=== PATIENT | female | born 1995 | race African-American/Black ===

== ENCOUNTER 2016-09-25 18:27 | Outpatient (CLI) | payer SELFPAY ==
[2016-09-25] MEDS ORDERED: LANSOPRAZOLE 30 MG TAB.RAP.DR PO ONE ×2 (19:06→19:16)
[2016-09-25] MEDS ORDERED: LANSOPRAZOLE 30 MG TAB.RAP.DR ONE (19:08)
[2016-09-25 19:22] LABS: APPEARANCE,URINE CLEAR; BILIRUBIN,URINE NEGATIVE (NEGATIVE); GLUCOSE, URINE NEGATIVE (NEGATIVE); KETONES,URINE NEGATIVE (NEGATIVE); LEUKOCYTE ESTERASE,URINE SMALL (NEGATIVE); NITRITE,URINE NEGATIVE (NEGATIVE); PROTEIN,URINE NEGATIVE (NEGATIVE); URINE SPECIFIC GRAVITY 1.009; UROBILINOGEN,URINE NEGATIVE mg/dL (<2.0)
[2016-09-25] MEDS ORDERED: ONDANSETRON 4 MG TAB.RAPDIS PO ONE (19:47)
[2016-09-25] MEDS ORDERED: ONDANSETRON 4 MG TAB.RAPDIS ONE (19:54)
[2016-09-25 19:57] LABS: URINE BARBITURATES SCREEN NEGATIVE; URINE METHADONE SCREEN NEGATIVE; URINE PHENCYCLIDINE SCREEN NEGATIVE
--- NOTE | 2016-09-25 20:00 | L&D Flow Sheet ---
LD Flowsheet Datetime Report Generated by CPN: 09/25/2016 20:00 Datetime: 09/25/2016 19:50 Vital Signs NBP Sys/Genny/Mean (mmHg): 89 (QS system process) : 56 (QS system process) : 67 (QS system process) Pulse: 96 (QS system process) LaborFlag: Antepartum (QS system process) Datetime: 09/25/2016 19:20 Vital Signs NBP Sys/Genny/Mean (mmHg): 101 (QS system process) : 64 (QS system process) : 78 (QS system process) Pulse: 91 (QS system process) LaborFlag: Antepartum (QS system process) Datetime: 09/25/2016 19:12 Medications Antiemetics/Antacids: Prevacid 30mg ODT (Precious Chalman, RN) Datetime: 09/25/2016 19:09 Communication Communication Comments: handoff report given to A Chalman RN (Luzmaria Baidy, RN) Datetime: 09/25/2016 19:02 Communication Communication Comments: Dr Neilsen notified of pt complaint of sour stomach and ctx q20-30 min and lower abd pressure. Orders received for prevacid 30mg odt and d/c home if upset stomach resolves. (Luzmaria Baidy, RN) Datetime: 09/25/2016 18:50 Vital Signs NBP Sys/Genny/Mean (mmHg): 109 (QS system process) : 72 (QS system process) : 85 (QS system process) Pulse: 102 (QS system process) LaborFlag: Antepartum (QS system process) Datetime: 09/25/2016 18:48 Uterine Activity Frequency (min): 20-30 (Luzmaria Hill, RN) Pain Pain Scale: 0 (Luzmaria Hill, RN) Pain Presence: None/Denies (Luzmaria Hill, SAEED) Pain Type: N/A (Luzmaria Hill, SAEED) Vaginal Exam Membrane Status: Intact (Luzmaria Baidy, RN) Vaginal Bleeding: None (Luzmaria Baidy, RN) Maternal Assessment Level of Consciousness: Fully Conscious (Luzmaria Baidy, RN) DTR's/Clonus: DTRs 2+; No Clonus (Luzmaria Baidy, RN) Headache: Denies (Luzmaria Baidy, RN) Breath Sounds, Left: Clear and Equal (Luzmaria Baidy, RN) Breath Sounds, Right: Clear and Equal (Luzmaria Baidy, RN) Nausea/Vomiting: Denies (Luzmaria Baidy, RN) RUQ Epigastric Pain: Denies (Luzmaria Baidy, RN) Patient Care Patient Position/Activity: Semi-Fowlers (Luzmaria Hill RN) Teaching Instructional Method: Verbal; Patient Instructed; Verbalized Understanding (Luzmaria Hill RN) Plan of Care: Plan of Care Discussed (Luzmaria Hill RN) Unit Routine: [employer] to Room; Call Treviño; Bed; Monitoring (Luzmaria Hill RN) LaborFlag: Antepartum (QS system process)
--- NOTE | 2016-09-25 20:43 | Non Stress Test Report ---
Non Stress Test Datetime Report Generated by CPN: 09/25/2016 20:43 DEMOGRAPHIC EGA NST: 36.4 INDICATION Indication for Study: Ordered by Provider MONITORING Monitor Explained: Monitor Explained; Test Explained; Patient Verbalized Understanding Time on Monitor: 09/25/2016 18:48 NST INTERVENTIONS NST Interventions: None Physician Notified NST: Dr Neilsen BABY A: [id number] BABY A Movement : Present Contraction Frequency : irregular FHR Baseline : 145 Accelerations : 15X15 Decelerations : None Variability : Moderate 6-25bpm NST Review: Meets Criteria for Reactive NST NST Review and Verified By : Max kern. RN NST Results: Reactive NST REPORT Report Trigger: Send Report
--- NOTE | 2016-09-26 04:47 | L&D Discharge Summary ---
OB Discharge Summary Datetime Report Generated by CPN: 09/26/2016 04:45 DISCHARGE DIAGNOSIS Diagnosis/Symptoms: False Labor Gestation: 36.4 Number of Babies in Womb: 1 Parity: 1 DIET/ACTIVITY/RESTRICTIONS Diet: Regular Activity: Normal Activity TEACHING/INSTRUCTIONS/REFERRALS Instructions Given To: Patient Instructions Understood: Patient Verbalized Understanding Referrals: None Educational Materials- Other: Kick Counts and Round ligament ludy DISCHARGE INFORMATION Discharged AMA: No Discharge Date/Time: 09/25/2016 20:00 Discharged To: Home Discharge Provider Name: Jessy Accompanied By: self Discharge Method: Ambulatory Condition: Stable FOLLOW UP INFORMATION Follow Up With: [facility] Follow Up On: As Scheduled Comments: pt educated on kick counts and pre term labor precautions. pt instructed to return hosptial for SROM, decreased fm, bleeding like a period or strong regular contractions
--- NOTE | 2016-09-26 04:47 | L&D Admission Assessment ---
LD ADM ASMT Datetime Report Generated by CPN: 09/26/2016 04:45 PATIENT ASSESSMENT Assessment Type: Triage (09/25/2016 18:48:Luzmaria Baidy, RN) WEIGHT Weight (lb): 185 (09/25/2016 18:42:QS system process) Weight (kg): 84.1 (09/25/2016 18:42:QS system process) BMI: 36.1 (09/25/2016 18:42:QS system process) PAIN Pain Scale: 0 (09/25/2016 18:48:Luzmaria Hill RN) Pain Presence: None/Denies (09/25/2016 18:48:Luzmaria Hill RN) Pain Type: N/A (09/25/2016 18:48:Luzmaria Hill RN) CONTRACTIONS Frequency (min): x1 (09/25/2016 19:55:Precious Powell RN) Frequency (min): none (09/25/2016 19:45:Precious Powell RN) Frequency (min): irregular (09/25/2016 19:30:Precious Powell RN) Frequency (min): irregular (09/25/2016 19:15:Precious Powell RN) Frequency (min): x1 (09/25/2016 19:00:Precious Powell RN) Frequency (min): 20-30 (09/25/2016 18:48:Luzmaria Hill RN) Duration (sec): 90 (09/25/2016 19:55:Precious Powell RN) Duration (sec): 120 (09/25/2016 19:30:Precious Darioman, RN) Duration (sec): 80-90 (09/25/2016 19:15:Precious Sherry, RN) Duration (sec): 90 (09/25/2016 19:00:Precious Sherry, RN) Quality: Mild (09/25/2016 19:55:Precious Sherry, RN) Quality: Mild (09/25/2016 19:30:Precious Sherry, RN) Quality: Mild (09/25/2016 19:15:Precious Sherry, RN) Quality: Mild (09/25/2016 19:00:Precious Sherry, RN) Pattern: Normal: <= 5 Contractions in 10 Minutes (09/25/2016 19:55:Precious Darioman, RN) Pattern: Normal: <= 5 Contractions in 10 Minutes (09/25/2016 19:30:Precious Sherry, RN) Pattern: Normal: <= 5 Contractions in 10 Minutes (09/25/2016 19:15:Precious Sherry, RN) Pattern: Normal: <= 5 Contractions in 10 Minutes (09/25/2016 19:00:Precious Sherry, RN) Resting Tone [place]: Relaxed (09/25/2016 19:55:Precious Sherry, RN) Resting Tone [place]: Relaxed (09/25/2016 19:30:Precious Sherry, RN) Resting Tone [place]: Relaxed (09/25/2016 19:15:Precious Sherry, RN) Resting Tone [place]: Relaxed (09/25/2016 19:00:Precious Darioman, RN) VAGINAL EXAM Membranes Status: Intact (09/25/2016 18:48:Lzumaria Hill, RN) NEURO Level of Consciousness: Fully Conscious (09/25/2016 18:48:Luzmaria Hill RN) DTR's/Clonus: DTRs 2+; No Clonus (09/25/2016 18:48:Luzmaria Hill RN) Headache: Denies (09/25/2016 18:48:Luzmaria Hill RN) Dizziness: Yes (Annotations: slightly dizzy per pt) (09/25/2016 18:48:Luzmaria Hill RN) Blurred Vision: No (09/25/2016 18:48:Luzmaria Hill RN) Extremity Numbness/Tingling : None (09/25/2016 18:48:Luzmaria Hill RN) Extremity Movement: Full Range of Motion (09/25/2016 18:48:Luzmaria Hill RN) CARDIOVASCULAR Nailbeds: [place] (09/25/2016 18:48:Luzmaria Hill RN) Capillary Refill: Less than 3 Seconds (09/25/2016 18:48:Luzmaria Hill RN) Lower Extremities Edema: None (09/25/2016 18:48:Luzmaria Hill RN) Lower Extremities Edema Degree: None (09/25/2016 18:48:Luzmaria Hill RN) Upper Extremities Edema: None (09/25/2016 18:48:Luzmaria Hill RN) Upper Extremities Edema Degree: None (09/25/2016 18:48:Luzmaria Hill RN) Facial Edema: None (09/25/2016 18:48:Luzmaria Hill RN) Fer's Sign Left Leg: Negative (09/25/2016 18:48:Luzmaria Hill RN) Fer's Sign Right Leg: Negative (09/25/2016 18:48:Luzmaria Hill RN) RESPIRATORY Respiratory Effort: Unlabored; Regular Rhythm; Equal Expansion (09/25/2016 18:48:Luzmaria Hill, SAEED) Breath Sounds, Left: Clear and Equal (09/25/2016 18:48:Luzmaria Hill, RN) Breath Sounds, Right: Clear and Equal (09/25/2016 18:48:Luzmaria Hill, SAEED) Cough Productivity: None (09/25/2016 18:48:Luzmaria Hill RN) GASTROINTESTINAL Nausea/Vomiting: Denies (09/25/2016 18:48:Luzmaria Hill RN) Bowel Sounds: Normoactive; All Quadrants (09/25/2016 18:48:Luzmaria Hill RN) RUQ Epigastric Pain: Denies (09/25/2016 18:48:Luzmaria Hill RN) Bowel Patterns: Diarrhea (Annotations: since yest) (09/25/2016 18:48:Luzmaria Hill RN) Hemorrhoids: None (09/25/2016 18:48:Luzmaria Hill RN) Diet Type: Regular diet (09/25/2016 18:48:Luzmaria Hill RN) Last Meal: 09/25/2016 16:00 (09/25/2016 18:48:Luzmaria Hill RN) GENITOURINARY Bladder: Nondistended (09/25/2016 18:48:Luzmaria Hill RN) Frequency of Urination: No (09/25/2016 18:48:Luzmaria Hill RN) Urination Burning: No (09/25/2016 18:48:Luzmaria Hill RN) CVA Tenderness: No (09/25/2016 18:48:Luzmaria Hill RN) Vaginal Bleeding: None (09/25/2016 18:48:Luzmaria Hill RN) Vaginal Discharge Color: N/A (09/25/2016 18:48:Luzmaria Hill RN) INTEGUMENTARY Skin Color: Normal for Race (09/25/2016 18:48:Luzmaria Hill RN) Skin Temperature: Warm (09/25/2016 18:48:Luzmaria Hill RN) Skin Moisture: Dry (09/25/2016 18:48:Luzmaria Hill RN) EMI SKIN ASSESSMENT Emi Scale Sensory Perception: No Impairment- Responds to verbal commands. Has no sensory deficit which would limit ability to feel or voice pain or discomfort (09/25/2016 18:48:Luzmaria Hill RN) Emi Scale Moisture: Rarely Moist- Skin is usually dry. Linen only requires changing at routine intervals (09/25/2016 18:48:Luzmaria Hill RN) Emi Scale Activity: Walks Frequently- Walks outside the room at least twice a day and inside room at least every 2 hours during the day. (09/25/2016 18:48:Luzmaria Hill RN) Emi Scale Mobility: No Limitations- Makes major and frequent changes in position without assistance (09/25/2016 18:48:Luzmaria Hill RN) Emi Scale Nutrition: Excellent- Eats most of every meal. Never refuses a meal. Usually eats a total of 4 or more servings of meat and dairy products. Occasionally eats between meals. Does not require supplementation (09/25/2016 18:48:Luzmaria Hill RN) Emi Scale Friction and Shear: No Apparent Problem- Moves in bed and in chair independently and has sufficient muscle strength to lift up completely during move. Maintains good position in bed or chair at all times (09/25/2016 18:48:Luzmaria Hill RN) Emi Scale Total: 23 (09/25/2016 18:48:QS system process) Emi Scale Risk: No Risk of Pressure Ulcer Noted at this Time (09/25/2016 18:48:QS system process) SAFETY Call Treviño Within Reach: Yes (09/25/2016 18:48:Luzmaria Hill RN) Side Rails Up: Yes (09/25/2016 18:48:Luzmaria Hill RN) Bed Wheels Locked: Yes (09/25/2016 18:48:Luzmaria Hill RN) Arm Bands Present: Yes (09/25/2016 18:48:Luzmaria Hill RN) FALL SCREEN Fall Risk History of Falling: (0) No (09/25/2016 18:48:Luzmaria Hill RN) Fall Risk Secondary Diagnosis: (0) No (09/25/2016 18:48:Luzmaria Hill RN) Fall Risk Ambulatory Aid: (0) None/Bedrest/Wheelchair/Nurse Assist (09/25/2016 18:48:Luzmaria Hill RN) Fall Risk IV Therapy: (0) No (09/25/2016 18:48:Luzmaria Hill RN) Fall Risk Gait: (0) Normal/Bedrest/Immobile (09/25/2016 18:48:Luzmaria Hill RN) Fall Risk Mental Status: (0) Oriented to Own Ability (09/25/2016 18:48:Luzmaria Hill RN) Fall Risk Score: 0 (09/25/2016 18:48:QS system process) Fall Risk Score Definition: No Risk: No action required (09/25/2016 18:48:QS system process) BABY A FHR Baseline Rate (bpm) Baby A: 140 (09/25/2016 19:55:Precious Powell RN) FHR Baseline Rate (bpm) Baby A: 135 (09/25/2016 19:45:Precious Powell RN) FHR Baseline Rate (bpm) Baby A: 140 (09/25/2016 19:30:Precious Powell RN) FHR Baseline Rate (bpm) Baby A: 140 (09/25/2016 19:15:Precious Powell RN) FHR Baseline Rate (bpm) Baby A: 145 (09/25/2016 19:00:Precious Powell RN) Variability Baby A: Moderate 6-25 bpm (09/25/2016 19:45:Precious Powell RN) Variability Baby A: Moderate 6-25 bpm (09/25/2016 19:30:Precious Powell RN) Variability Baby A: Moderate 6-25 bpm (09/25/2016 19:15:Precious Powell RN) Variability Baby A: Moderate 6-25 bpm (09/25/2016 19:00:Precious Powell RN) Accelerations Baby A: 15X15 (09/25/2016 19:45:Precious Powell RN) Accelerations Baby A: 15X15 (09/25/2016 19:00:Precious Powell RN) Decelerations Baby A: None (09/25/2016 19:55:Precious Powell RN) Decelerations Baby A: None (09/25/2016 19:45:Precious Powell RN) Decelerations Baby A: None (09/25/2016 19:30:Precious Powell RN) Decelerations Baby A: None (09/25/2016 19:15:Precious Powell RN) Decelerations Baby A: None (09/25/2016 19:00:Precious Powell RN)
--- NOTE | 2016-09-26 04:47 | L&D Flow Sheet ---
LD Flowsheet Datetime Report Generated by CPN: 09/26/2016 04:45 Datetime: 09/25/2016 19:55 Uterine Activity Monitor Mode: External; Palpation (Precious Powell RN) Frequency (min): x1 (Precious Powell RN) Quality: Mild (Precious Powell RN) Duration (sec): 90 (Precious Powell RN) Pattern: Normal: <= 5 Contractions in 10 Minutes (Precious Chalman, RN) Resting Tone (Palpate): Relaxed (Precious Chalman, RN) Assessment A Monitor Mode: External US (Precious Chalman, RN) FHR Baseline Rate : 140 (Precious Chalman, RN) FHR Baseline Changes: Return to Previous Baseline (Precious Chalman, RN) Decelerations: None (Precious Chalman, RN) Medications Antiemetics/Antacids: Zofran ODT (mg) @ 4 (Precious Chalman, RN) Datetime: 09/25/2016 19:50 Vital Signs NBP Sys/Genny/Mean (mmHg): 89 (QS system process) : 56 (QS system process) : 67 (QS system process) Pulse: 96 (QS system process) LaborFlag: Antepartum (QS system process) Datetime: 09/25/2016 19:45 Uterine Activity Monitor Mode: External; Palpation (Precious Chalman, RN) Frequency (min): none (Precious Chalman, RN) Assessment A Monitor Mode: External US (Precious Sherry, RN) FHR Baseline Rate : 135 (Precious Darioman, RN) Variability: Moderate 6-25 bpm (Precious Chalman, RN) Accelerations: 15X15 (Precious Chalman, RN) Decelerations: None (Precious Chalman, RN) Datetime: 09/25/2016 19:42 Comments: report called to Dr. Jiménez. provider aware that pt still complains of upset stomach and diarrhea. provider also aware that pt has been exposed to a stomach virus. per provider pt ok to be d/c home with education on pre term labor and kick counts. pt may have zofran 4 mg ODt for comfort (Precious Chalman, RN) Datetime: 09/25/2016 19:30 Uterine Activity Monitor Mode: External; Palpation (Precious Chalman, RN) Frequency (min): irregular (Precious Chalman, RN) Quality: Mild (Precious Chalman, RN) Duration (sec): 120 (Precious Chalman, RN) Pattern: Normal: <= 5 Contractions in 10 Minutes (Precious Chalman, RN) Resting Tone (Palpate): Relaxed (Precious Chalman, RN) Assessment A Monitor Mode: External US (Precious Chalman, RN) FHR Baseline Rate : 140 (Precious Chalman, RN) FHR Baseline Changes: No Baseline Change (Precious Chalman, RN) Variability: Moderate 6-25 bpm (Precious Chalman, RN) Decelerations: None (Precious Chalman, RN) Datetime: 09/25/2016 19:20 Vital Signs NBP Sys/Genny/Mean (mmHg): 101 (QS system process) : 64 (QS system process) : 78 (QS system process) Pulse: 91 (QS system process) LaborFlag: Antepartum (QS system process) Datetime: 09/25/2016 19:15 Uterine Activity Monitor Mode: External; Palpation (Precious Chalman, RN) Frequency (min): irregular (Precious Chalman, RN) Quality: Mild (Precious Chalman, RN) Duration (sec): 80-90 (Precious Chalman, RN) Pattern: Normal: <= 5 Contractions in 10 Minutes (Precious Chalman, RN) Resting Tone (Palpate): Relaxed (Precious Chalman, RN) Assessment A Monitor Mode: External US (Precious Chalman, RN) FHR Baseline Rate : 140 (Precious Chalman, RN) FHR Baseline Changes: No Baseline Change (Precious Chalman, RN) Variability: Moderate 6-25 bpm (Precious Chalman, RN) Decelerations: None (Precious Chalman, RN) Datetime: 09/25/2016 19:12 Medications Antiemetics/Antacids: Prevacid 30mg ODT (Precious Chalman, RN) Datetime: 09/25/2016 19:09 Communication Communication Comments: handoff report given to A Chalman RN (Luzmaria Hill, RN) Datetime: 09/25/2016 19:02 Communication Communication Comments: Dr Neilsen notified of pt complaint of sour stomach and ctx q20-30 min and lower abd pressure. Orders received for prevacid 30mg odt and d/c home if upset stomach resolves. (Luzmaria Hill, RN) Datetime: 09/25/2016 19:00 Uterine Activity Monitor Mode: External; Palpation (Precious Chalman, RN) Frequency (min): x1 (Precious Chalman, RN) Quality: Mild (Precious Chalman, RN) Duration (sec): 90 (Precious Chalman, RN) Pattern: Normal: <= 5 Contractions in 10 Minutes (Precious Chalman, RN) Resting Tone (Palpate): Relaxed (Precious Chalman, RN) Assessment A Monitor Mode: External US (Precious Chalman, RN) FHR Baseline Rate : 145 (Precious Chalman, RN) FHR Baseline Changes: No Baseline Change (Precious Chalman, RN) Variability: Moderate 6-25 bpm (Precious Chalman, RN) Accelerations: 15X15 (Precious Chalman, RN) Decelerations: None (Precious Chalman, RN) Datetime: 09/25/2016 18:50 Vital Signs NBP Sys/Genny/Mean (mmHg): 109 (QS system process) : 72 (QS system process) : 85 (QS system process) Pulse: 102 (QS system process) LaborFlag: Antepartum (QS system process) Datetime: 09/25/2016 18:48 Frequency (min): 20-30 (Luzmaria Baidy, RN) Pain Pain Scale: 0 (Luzmaria Baidy, RN) Pain Presence: None/Denies (Luzmaria Baidy, RN) Pain Type: N/A (Luzmaria Baidy, RN) Vaginal Exam Membrane Status: Intact (Luzmaria Baidy, RN) Vaginal Bleeding: None (Luzmaria Baidy, RN) Maternal Assessment Level of Consciousness: Fully Conscious (Luzmaria Baierik, RN) DTR's/Clonus: DTRs 2+; No Clonus (Luzmaria Baierik, RN) Headache: Denies (Luzmaria Baidy, RN) Breath Sounds, Left: Clear and Equal (Luzmaria Hill, RN) Breath Sounds, Right: Clear and Equal (Luzmaria Baierik, RN) Nausea/Vomiting: Denies (Luzmaria Liz, RN) RUQ Epigastric Pain: Denies (Luzmaria Hill, RN) Patient Care Patient Position/Activity: Semi-Fowlers (Luzmaria Hill, SAEED) Teaching Instructional Method: Verbal; Patient Instructed; Verbalized Understanding (Luzmaria Hill RN) Plan of Care: Plan of Care Discussed (Luzmaria Hill RN) Unit Routine: [place] to Room; Call Treviño; Bed; Monitoring (Luzmaria Hill RN) LaborFlag: Antepartum (QS system process)
--- NOTE | 2016-09-26 04:47 | Antepartum Discharge Summary ---
Antepartum DC Datetime Report Generated by CPN: 09/26/2016 04:45 DIET/ACTIVITY/RESTRICTIONS Diet: Regular (09/25/2016 20:43:Precious Powell, RN) Activity: Normal Activity (09/25/2016 20:43:Precious Sherry, RN) TEACHING/INSTRUCTIONS/REFERRALS Instructions Understood: Patient Verbalized Understanding (09/25/2016 20:43:Precious Powell, RN) Referrals: None (09/25/2016 20:43:Precious Powell RN) DISCHARGE INFORMATION Discharged AMA: No (09/25/2016 20:43:Precious Powell RN) Discharge Date/Time: 09/25/2016 20:00 (09/25/2016 20:43:Precious Powell RN) Discharged To: Home (09/25/2016 20:43:Precious Powell RN) Discharge Provider Name: Neilsen (09/25/2016 20:43:Precious Powell RN) Accompanied By: self (09/25/2016 20:43:Precious Powell RN) Discharge Method: Ambulatory (09/25/2016 20:43:Precious Powell RN) Condition: Stable (09/25/2016 20:43:Precious Powell RN) FOLLOW UP INFORMATION Follow Up With: [facility] (09/25/2016 20:43:Precious Powell RN) Follow Up On: As Scheduled (09/25/2016 20:43:Precious Powell RN) Comments: pt educated on kick counts and pre term labor precautions. pt instructed to return hosptial for SROM, decreased fm, bleeding like a period or strong regular contractions (09/25/2016 20:43:Precious Powell RN)
--- NOTE | 2016-09-26 04:47 | L&D Current Admission ---
Current Admit Datetime Report Generated by CPN: 09/26/2016 04:45 ADMISSION INFORMATION Chief Complaint: Other (Annotations: pt states that her stomach has been upset feels like she ate something bad since yesterday am. Ctx every 20-30min for a few weeks.) (09/25/2016 18:48:Luzmaria Hill RN)
--- NOTE | 2016-09-26 04:47 | L&D General Admission ---
General Admit Datetime Report Generated by CPN: 09/26/2016 04:45 INFORMATION Para: 1 (09/25/2016 20:43:Precious Chalman, RN) Baby, Number in Womb: 1 (09/25/2016 20:43:Precious Chalman, RN) ALLERGIES Medication Allergies: No Known Allergies (09/25/2016) (09/25/2016 18:42:QS system process) DEMOGRAPHICS Home (09/25/2016 18:27:QS system process) Work (09/25/2016 18:27:QS system process)
== END 2016-09-25 20:00 | disposition home or self-care (01) ==
LOC: LC 18:27
PROVIDERS: ATTEND Specialist
PROC: 4A1HXCZ Monitoring of Products of Conception, Cardiac Rate, External Approach (ICD-10-PCS; principal; 2016-09-25)
DX: O47.03 False labor before 37 completed weeks of gestation, third trimester (principal); Z3A.36 36 weeks gestation of pregnancy
CPT/HCPCS: 59025; 81005; G0479; S0119; 80307

== ENCOUNTER 2016-10-10 18:32 | Outpatient (CLI) | payer MEDICAID ==
[2016-10-10] MEDS ORDERED: ONDANSETRON 4 MG TAB.RAPDIS PO ONE (19:15)
[2016-10-10] MEDS ORDERED: ONDANSETRON 4 MG TAB.RAPDIS ONE (19:19)
[2016-10-10 19:25] LABS: APPEARANCE,URINE CLEAR; BILIRUBIN,URINE NEGATIVE (NEGATIVE); GLUCOSE, URINE NEGATIVE (NEGATIVE); KETONES,URINE NEGATIVE (NEGATIVE); LEUKOCYTE ESTERASE,URINE TRACE (NEGATIVE); NITRITE,URINE NEGATIVE (NEGATIVE); PROTEIN,URINE NEGATIVE (NEGATIVE); URINE SPECIFIC GRAVITY 1.003; UROBILINOGEN,URINE NEGATIVE mg/dL (<2.0)
[2016-10-10 19:46] LABS: URINE BARBITURATES SCREEN NEGATIVE; URINE METHADONE SCREEN NEGATIVE; URINE PHENCYCLIDINE SCREEN NEGATIVE
--- NOTE | 2016-10-10 20:00 | L&D Flow Sheet ---
LD Flowsheet Datetime Report Generated by CPN: 10/10/2016 20:00 Datetime: 10/10/2016 19:46 Uterine Activity Monitor Mode: External; Palpation (Franci Maguire, RN) Frequency (min): Irregular (Franci Field, RN) Resting Tone (Palpate): Relaxed (Franci Maguire, RN) Assessment A Monitor Mode: External US (Franci Field, RN) FHR Baseline Rate : 130 (Franci Field, RN) Variability: Moderate 6-25 bpm (Franci Field, RN) Accelerations: 10X10 (Franci Field, RN) Decelerations: None (Franci Field, RN) Patient Care Patient Care Comments: Discussed kick counts and signs and symptoms of when to return to office or hospital with patient; patient verbalized understanding (Franci Field, RN) Datetime: 10/10/2016 19:39 Vital Signs NBP Sys/Genny/Mean (mmHg): 99 (QS system process) : 58 (QS system process) : 73 (QS system process) Pulse: 90 (QS system process) LaborFlag: Antepartum (QS system process) Datetime: 10/10/2016 19:36 Medications Antiemetics/Antacids: Zofran ODT (mg) @ 4 (Franci Field, RN) Datetime: 10/10/2016 19:30 Uterine Activity Monitor Mode: External; Palpation (Franci Field, RN) Frequency (min): x1 (Franci Field, RN) Quality: Mild (Franci Field, RN) Duration (sec): 100 (Franci Field, RN) Resting Tone (Palpate): Relaxed (Franci Field, RN) Assessment A Monitor Mode: External US (Franci Field, RN) FHR Baseline Rate : 130 (Franci Field, RN) Variability: Moderate 6-25 bpm (Franci Field, RN) Accelerations: 15X15 (Franci Field, RN) Decelerations: None (Franci Field, RN) Datetime: 10/10/2016 19:24 Pain Pain Scale: 4 ([facility]) Pain Presence: Constant ([facility]) Pain Type: Dull ([facility]) Pain Location: Back ([facility]) Pain Goal: 0 ([facility]) Pain Relief Measures: Comfort Measures ([facility]) Pain Coping: Talking Through Contractions; Breathing Through Contractions ([facility]) Vaginal Exam Vaginal Bleeding: None (Franci Field, RN) Maternal Assessment Level of Consciousness: Fully Conscious (Franci Field, RN) DTR's/Clonus: DTRs 1+; No Clonus (Franci Field, RN) Headache: Denies (Franci Field, RN) Breath Sounds, Left: Clear and Equal (Franci Field, RN) Breath Sounds, Right: Clear and Equal (Franci Field, RN) Nausea/Vomiting: Present (Franci Field, RN) RUQ Epigastric Pain: Denies (Franci Field, RN) Teaching Instructional Method: Verbal; Patient Instructed; Verbalized Understanding (Franci Maguire RN) Plan of Care: Plan of Care Discussed (Franci Maguire RN) Unit Routine: [place] to Room; Call Treviño; Bed; Visiting Policy; Waiting Areas; Infant Security; Phone/Cell Phone Use; Unit Personnel; Handwashing; Flu/Illness Precautions; Monitoring; Safety/Fall Risk Prevention; Bathroom Privileges (Franci Maguire RN) LaborFlag: Antepartum (QS system process) Datetime: 10/10/2016 19:14 Communication Communication: RN Reviewed Strip; Provider Orders Received (Franci Field, RN) Communication Comments: Informed Dr. Dale of patient's complaint; orders received for Zofran (Franci Field, RN) Datetime: 10/10/2016 19:13 Communication Comments: Report received from H.Bucks, RN (Franci Field, RN) Datetime: 10/10/2016 19:08 Vital Signs NBP Sys/Genny/Mean (mmHg): 101 (QS system process) : 60 (QS system process) : 74 (QS system process) Pulse: 104 (QS system process) LaborFlag: Antepartum (QS system process)
--- NOTE | 2016-10-10 20:02 | Non Stress Test Report ---
Non Stress Test Datetime Report Generated by CPN: 10/10/2016 20:02 DEMOGRAPHIC EGA NST: 38.5 INDICATION Indication for Study: Ordered by Provider Indication for Study (NST) Other: LC MONITORING Monitor Explained: Monitor Explained; Test Explained; Patient Verbalized Understanding Time on Monitor: 10/10/2016 19:07 Time off Monitor: 10/10/2016 19:46 NST Duration: 39 NST INTERVENTIONS NST Interventions: PO Hydration; Reposition Patient Physician Notified NST: Dr. Dale BABY A: [id number] BABY A Movement : Present Contraction Frequency : x1 FHR Baseline : 130 Accelerations : 15X15 Decelerations : None Variability : Moderate 6-25bpm NST Review: Meets Criteria for Reactive NST NST Review and Verified By : Liv Mayers RN NST Results: Reactive NST REPORT Report Trigger: Send Report
--- NOTE | 2016-10-11 04:46 | L&D Admission Assessment ---
LD ADM ASMT Datetime Report Generated by CPN: 10/11/2016 04:45 PATIENT ASSESSMENT Assessment Type: Triage (10/10/2016 19:24:Franci Field, RN) WEIGHT Weight (lb): 187 (10/10/2016 19:02:QS system process) Weight (kg): 85.0 (10/10/2016 19:02:QS system process) BMI: 36.5 (10/10/2016 19:02:QS system process) PAIN Pain Scale: 4 (10/10/2016 19:24:Franci Maguire RN) Pain Presence: Constant (10/10/2016 19:24:Franci Maguire RN) Pain Type: Dull (10/10/2016 19:24:Franci Maguire RN) Pain Location: Back (10/10/2016 19:24:Franci Maguire RN) Pain Goal: 0 (10/10/2016 19:24:Franci Maguire RN) Pain Related to Contraction: Unsure (10/10/2016 19:24:Franci Maguire RN) CONTRACTIONS Frequency (min): Irregular (10/10/2016 19:46:Franci Maguire RN) Frequency (min): x1 (10/10/2016 19:30:Franci Maguier RN) Duration (sec): 100 (10/10/2016 19:30:Franci Maguire RN) Quality: Mild (10/10/2016 19:30:Franci Maguire RN) Resting Tone [place]: Relaxed (10/10/2016 19:46:Franci Maguire RN) Resting Tone [place]: Relaxed (10/10/2016 19:30:Franci Maguire RN) NEURO Level of Consciousness: Fully Conscious (10/10/2016 19:24:Franci Maguire RN) DTR's/Clonus: DTRs 1+; No Clonus (10/10/2016 19:24:Franci Maguire RN) Headache: Denies (10/10/2016 19:24:Franci Maguire RN) Dizziness: No (10/10/2016 19:24:Franci Maguire RN) Blurred Vision: No (10/10/2016 19:24:Franci Maguire RN) Extremity Numbness/Tingling : None (10/10/2016 19:24:Franci Maguire RN) Extremity Movement: Full Range of Motion (10/10/2016 19:24:Franci Maguire RN) CARDIOVASCULAR Heart Rhythm: Regular (10/10/2016 19:24:Franci Maguire RN) Nailbeds: [place] (10/10/2016 19:24:Franci Maguire RN) Capillary Refill: Less than 3 Seconds (10/10/2016 19:24:Franci Maguire RN) Lower Extremities Edema: None (10/10/2016 19:24:Franci Maguire RN) Lower Extremities Edema Degree: None (10/10/2016 19:24:Franci Maguire RN) Upper Extremities Edema: None (10/10/2016 19:24:Franci Maguire RN) Upper Extremities Edema Degree: None (10/10/2016 19:24:Franci Maguire RN) Facial Edema: None (10/10/2016 19:24:Franci Maguire RN) Fer's Sign Left Leg: Negative (10/10/2016 19:24:Franci Maguire RN) Fre's Sign Right Leg: Negative (10/10/2016 19:24:Franci Maguire RN) DVT RISK ASSESSMENT DVT Risk Age: Age less than 41 years (10/10/2016 19:24:Franci Maguire RN) DVT Risk BMI: BMI<31 (10/10/2016 19:24:Franci Maguire RN) DVT Risk Surgery: None Applicable (10/10/2016 19:24:Franci Maguire RN) DVT Risk Other: Women Only- or (<1 month) (10/10/2016 19:24:Franci Maguire RN) DVT Risk Total: 1 (10/10/2016 19:24:QS system process) DVT Risk Text: Low Risk (<10%) No specific measures, early ambulation (10/10/2016 19:24:QS system process) RESPIRATORY Respiratory Effort: Unlabored; Regular Rhythm; Equal Expansion (10/10/2016 19:24:Franci Maguire RN) Breath Sounds, Left: Clear and Equal (10/10/2016 19:24:Franci Maguire RN) Breath Sounds, Right: Clear and Equal (10/10/2016 19:24:Franci Maguire RN) Cough Productivity: None (10/10/2016 19:24:Franci Maguire RN) GASTROINTESTINAL Nausea/Vomiting: Present (10/10/2016 19:24:Franci Maguire RN) Bowel Sounds: Normoactive (10/10/2016 19:24:Franci Maguire RN) RUQ Epigastric Pain: Denies (10/10/2016 19:24:Franci Maguire RN) Bowel Patterns: Constipation (10/10/2016 19:24:Franci Maguire RN) Hemorrhoids: None (10/10/2016 19:24:Franci Maguire RN) Diet Type: Regular diet (10/10/2016 19:24:Franci Maguire RN) Last Meal: 10/10/2016 18:30 (10/10/2016 19:24:Franci Maguire RN) GENITOURINARY Bladder: Nondistended (10/10/2016 19:24:[facility]) Frequency of Urination: No (10/10/2016 19:24:[facility]) Urination Burning: No (10/10/2016 19:24:[facility]) CVA Tenderness: No (10/10/2016 19:24:[facility]) INTEGUMENTARY Skin Color: Normal for Race (10/10/2016 19:24:[facility]) Skin Temperature: Warm (10/10/2016 19:24:[facility]) Skin Moisture: Dry (10/10/2016 19:24:[facility]) CHARANJIT SKIN ASSESSMENT Charanjit Scale Sensory Perception: No Impairment- Responds to verbal commands. Has no sensory deficit which would limit ability to feel or voice pain or discomfort (10/10/2016 19:24:Franci Maguire RN) Charanjit Scale Moisture: Rarely Moist- Skin is usually dry. Linen only requires changing at routine intervals (10/10/2016 19:24:Franci Maguire RN) Charanjit Scale Activity: Walks Frequently- Walks outside the room at least twice a day and inside room at least every 2 hours during the day. (10/10/2016 19:24:Franci Maguire RN) Charanjit Scale Mobility: No Limitations- Makes major and frequent changes in position without assistance (10/10/2016 19:24:Franci Maguire RN) Charanjit Scale Nutrition: Excellent- Eats most of every meal. Never refuses a meal. Usually eats a total of 4 or more servings of meat and dairy products. Occasionally eats between meals. Does not require supplementation (10/10/2016 19:24:Franci Maguire RN) Charanjit Scale Friction and Shear: No Apparent Problem- Moves in bed and in chair independently and has sufficient muscle strength to lift up completely during move. Maintains good position in bed or chair at all times (10/10/2016 19:24:Franci Maguire RN) Charanjit Scale Total: 23 (10/10/2016 19:24:QS system process) Charanjit Scale Risk: No Risk of Pressure Ulcer Noted at this Time (10/10/2016 19:24:QS system process) SUPPORT Emotional State: Calm/Relaxed (10/10/2016 19:24:Franci Maguire RN) SAFETY Call Treviño Within Reach: Yes (10/10/2016 19:24:Franci Maguire RN) Side Rails Up: Yes (10/10/2016 19:24:Franci Maguire RN) Bed Wheels Locked: Yes (10/10/2016 19:24:Franci Maguire RN) Arm Bands Present: Yes (10/10/2016 19:24:Franci Maguire RN) Isolation: [place] (10/10/2016 19:24:Franci Maguire RN) FALL SCREEN Fall Risk History of Falling: (0) No (10/10/2016 19:24:Franci Maguire RN) Fall Risk Secondary Diagnosis: (0) No (10/10/2016 19:24:Franci Maguire RN) Fall Risk Ambulatory Aid: (0) None/Bedrest/Wheelchair/Nurse Assist (10/10/2016 19:24:Franci Maguire RN) Fall Risk IV Therapy: (0) No (10/10/2016 19:24:Franci Maguire RN) Fall Risk Gait: (0) Normal/Bedrest/Immobile (10/10/2016 19:24:Franci Maguire RN) Fall Risk Mental Status: (0) Oriented to Own Ability (10/10/2016 19:24:Franci Maguire RN) Fall Risk Score: 0 (10/10/2016 19:24:QS system process) Fall Risk Score Definition: No Risk: No action required (10/10/2016 19:24:QS system process) RECENT TRAVEL/INFECTIOUS DISEASE Recent Exp Communicable Disease: No (10/10/2016 19:24:Franci Maguire RN) Cough or Fever: No (10/10/2016 19:24:Franci Maguire RN) Foreign Travel Past 10 Days: No (10/10/2016 19:24:Franci Maguire RN) Open Wounds or Sores: No (10/10/2016 19:24:Franci Maguire RN) Prior Antibiotic Resistance Tx: No (10/10/2016 19:24:Franci Maguire RN) Cultures Obtained: Not Applicable (10/10/2016 19:24:Franci Maguire RN) Isolation Initiated: No (10/10/2016 19:24:Franci Maguire RN) Pt/Family Education: Handwashing Hygiene (10/10/2016 19:24:Franci Maguire RN) BABY A FHR Baseline Rate (bpm) Baby A: 130 (10/10/2016 19:46:Franci Maguire RN) FHR Baseline Rate (bpm) Baby A: 130 (10/10/2016 19:30:Franci Maguire RN) Variability Baby A: Moderate 6-25 bpm (10/10/2016 19:46:Franci Maguire RN) Variability Baby A: Moderate 6-25 bpm (10/10/2016 19:30:Franci Maguire RN) Accelerations Baby A: 10X10 (10/10/2016 19:46:Franci Maguire RN) Accelerations Baby A: 15X15 (10/10/2016 19:30:Franci Maguire RN) Decelerations Baby A: None (10/10/2016 19:46:Franci Maguire RN) Decelerations Baby A: None (10/10/2016 19:30:Franci Maguire RN)
--- NOTE | 2016-10-11 04:46 | L&D Discharge Summary ---
OB Discharge Summary Datetime Report Generated by CPN: 10/11/2016 04:45 DISCHARGE DIAGNOSIS Diagnosis/Symptoms: False Labor Gestation: 38.5 Number of Babies in Womb: 1 Parity: 1 DIET/ACTIVITY/RESTRICTIONS Diet: Regular Activity: Normal Activity TEACHING/INSTRUCTIONS/REFERRALS Instructions Given To: Patient Instructions Understood: Patient Verbalized Understanding Referrals: None Educational Materials- Other: Kick counts Term DISCHARGE INFORMATION Discharged AMA: No Discharge Date/Time: 10/10/2016 19:59 Discharged To: Home Discharge Provider Name: Dr. Dale Accompanied By: Self Discharge Method: Ambulatory Condition: Stable FOLLOW UP INFORMATION Follow Up With: [facility] Follow Up On: As Scheduled Follow Up Phone Number: [facility] - Comments: Discussed kick counts and signs and symptoms of when to return to office or hospital with patient. Patient verbalized understanding. Patient discharged home due to false labor via ambulation in stable condition. GENERAL INSTR-CALL PROVIDER IF: Contractions: Contractions or cramps become more frequent than 8 in one hour or 4 in 20 minutes; Regular painful contractions every 5 minutes or less for one hour. Time your contractions from the beginning of one to the beginning of the next Pressure: Pressure in your vagina or lower abdomen that may feel like the baby is pushing down Period Like Cramps: Period-like cramps or low dull backache that may come and go Cramps/Diarrhea: Abdominal cramps that may be accompanied by diarrhea Gush of Fluid/Blood: Gush of fluid or blood from your vagina (it is normal to have spotting after vaginal exam or intercourse) Vaginal Discharge: Change in the type or amount of vaginal discharge Decreased Movement: Your baby is not moving as much as usual- 4 movements in 1 hour after drinking and resting on side Temperature: Temperature greater than 100.0(F) orally
--- NOTE | 2016-10-11 04:46 | L&D Flow Sheet ---
LD Flowsheet Datetime Report Generated by CPN: 10/11/2016 04:45 Datetime: 10/10/2016 19:46 Uterine Activity Monitor Mode: External; Palpation (Franci Maguire, RN) Frequency (min): Irregular (Franci Field, RN) Resting Tone (Palpate): Relaxed (Franci Maguire, RN) Assessment A Monitor Mode: External US (Franci Field, RN) FHR Baseline Rate : 130 (Franci Field, RN) Variability: Moderate 6-25 bpm (Franci Field, RN) Accelerations: 10X10 (Franci Field, RN) Decelerations: None (Franci Field, RN) Patient Care Patient Care Comments: Discussed kick counts and signs and symptoms of when to return to office or hospital with patient; patient verbalized understanding (Franci Field, RN) Datetime: 10/10/2016 19:39 Vital Signs NBP Sys/Genny/Mean (mmHg): 99 (QS system process) : 58 (QS system process) : 73 (QS system process) Pulse: 90 (QS system process) LaborFlag: Antepartum (QS system process) Datetime: 10/10/2016 19:36 Medications Antiemetics/Antacids: Zofran ODT (mg) @ 4 (Franci Field, RN) Datetime: 10/10/2016 19:30 Uterine Activity Monitor Mode: External; Palpation (Franci Field, RN) Frequency (min): x1 (Franci Field, RN) Quality: Mild (Franci Field, RN) Duration (sec): 100 (Franci Field, RN) Resting Tone (Palpate): Relaxed (Franci Field, RN) Assessment A Monitor Mode: External US (Franci Field, RN) FHR Baseline Rate : 130 (Franci Field, RN) Variability: Moderate 6-25 bpm (Franci Field, RN) Accelerations: 15X15 (Franci Field, RN) Decelerations: None (Franci Field, RN) Datetime: 10/10/2016 19:24 Pain Pain Scale: 4 ([facility]) Pain Presence: Constant ([facility]) Pain Type: Dull ([facility]) Pain Location: Back ([facility]) Pain Goal: 0 ([facility]) Pain Relief Measures: Comfort Measures ([facility]) Pain Coping: Talking Through Contractions; Breathing Through Contractions ([facility]) Vaginal Exam Vaginal Bleeding: None (Franci Field, RN) Maternal Assessment Level of Consciousness: Fully Conscious (Rfanci Field, RN) DTR's/Clonus: DTRs 1+; No Clonus (Franci Field, RN) Headache: Denies (Franci Field, RN) Breath Sounds, Left: Clear and Equal (Franci Field, RN) Breath Sounds, Right: Clear and Equal (Franci Field, RN) Nausea/Vomiting: Present (Franci Field, RN) RUQ Epigastric Pain: Denies (Franci Field, RN) Teaching Instructional Method: Verbal; Patient Instructed; Verbalized Understanding (Franci Maguire RN) Plan of Care: Plan of Care Discussed (Franci Maguire RN) Unit Routine: [place] to Room; Call Treviño; Bed; Visiting Policy; Waiting Areas; Infant Security; Phone/Cell Phone Use; Unit Personnel; Handwashing; Flu/Illness Precautions; Monitoring; Safety/Fall Risk Prevention; Bathroom Privileges (Franci Maguire RN) LaborFlag: Antepartum (QS system process) Datetime: 10/10/2016 19:14 Communication Communication: RN Reviewed Strip; Provider Orders Received (Franci Field, RN) Communication Comments: Informed Dr. Dale of patient's complaint; orders received for Zofran (Franci Field, RN) Datetime: 10/10/2016 19:13 Communication Comments: Report received from H.Doña Ana, RN (Franci Field, RN) Datetime: 10/10/2016 19:12 Patient Care Patient Care Comments: Vomiting since last night (Franci Field, RN) Patient Care Patient Care Comments: Patient complains of vomiting and back pain (Franci Field, RN) Datetime: 10/10/2016 19:08 Vital Signs NBP Sys/Genny/Mean (mmHg): 101 (QS system process) : 60 (QS system process) : 74 (QS system process) Pulse: 104 (QS system process) LaborFlag: Antepartum (QS system process)
--- NOTE | 2016-10-11 04:46 | L&D Current Admission ---
Current Admit Datetime Report Generated by CPN: 10/11/2016 04:45 ADMISSION INFORMATION Chief Complaint: Back Pain; Vomiting (10/10/2016 19:24:Franci Maguire RN)
--- NOTE | 2016-10-11 04:46 | L&D General Admission ---
General Admit Datetime Report Generated by CPN: 10/11/2016 04:45 INFORMATION Para: 1 (10/10/2016 19:58:Franci Maguire, RN) Baby, Number in Womb: 1 (10/10/2016 19:58:Franciprabhakar Maguire, RN) ALLERGIES Medication Allergies: No Known Allergies (10/10/2016) (10/10/2016 19:01:QS system process)
--- NOTE | 2016-10-11 04:47 | Antepartum Discharge Summary ---
Antepartum DC Datetime Report Generated by CPN: 10/11/2016 04:45 DIET/ACTIVITY/RESTRICTIONS Diet: Regular (10/10/2016 19:58:rFanci Maguire RN) Activity: Normal Activity (10/10/2016 19:58:Franci Maguire RN) TEACHING/INSTRUCTIONS/REFERRALS Instructions Given To: Patient (10/10/2016 19:58:Franci Maguire RN) Instructions Understood: Patient Verbalized Understanding (10/10/2016 19:58:Franci Maguire RN) Referrals: None (10/10/2016 19:58:Franci Maguire RN) Educational Materials- Other: Kick counts Term (10/10/2016 19:58:Franci Maguire RN) DISCHARGE INFORMATION Discharged AMA: No (10/10/2016 19:58:Franci Maguire RN) Discharge Date/Time: 10/10/2016 19:59 (10/10/2016 19:58:Franci Maguire RN) Discharged To: Home (10/10/2016 19:58:Franci Maguire RN) Discharge Provider Name: Dr. Dale (10/10/2016 19:58:Franci Maguire RN) Accompanied By: Self (10/10/2016 19:58:Franci Maguire RN) Discharge Method: Ambulatory (10/10/2016 19:58:Franci Maguire RN) Condition: Stable (10/10/2016 19:58:Franci Maguire RN) FOLLOW UP INFORMATION Follow Up With: Health Department (10/10/2016 19:58:Franci Maguire RN) Follow Up On: As Scheduled (10/10/2016 19:58:Franci Maguire RN) Follow Up Phone Number: [facility] Department - (10/10/2016 19:58:Franci Maguire RN) Comments: Discussed kick counts and signs and symptoms of when to return to office or hospital with patient. Patient verbalized understanding. Patient discharged home due to false labor via ambulation in stable condition. (10/10/2016 19:58:Franci Maguire RN) GENERAL INSTR-CALL PROVIDER IF: Contractions: Contractions or cramps become more frequent than 8 in one hour or 4 in 20 minutes; Regular painful contractions every 5 minutes or less for one hour. Time your contractions from the beginning of one to the beginning of the next (10/10/2016 19:58:Franci Maguire RN) Pressure: Pressure in your vagina or lower abdomen that may feel like the baby is pushing down (10/10/2016 19:58:Franci Maguire RN) Period Like Cramps: Period-like cramps or low dull backache that may come and go (10/10/2016 19:58:Franci Maguire RN) Cramps/Diarrhea: Abdominal cramps that may be accompanied by diarrhea (10/10/2016 19:58:Franci Maguire RN) Gush of Fluid/Blood: Gush of fluid or blood from your vagina (it is normal to have spotting after vaginal exam or intercourse) (10/10/2016 19:58:Franci Maguire RN) Vaginal Discharge: Change in the type or amount of vaginal discharge (10/10/2016 19:58:Franci Maguire RN) Decreased Movement: Your baby is not moving as much as usual- 4 movements in 1 hour after drinking and resting on side (10/10/2016 19:58:Franci Maguire RN) Temperature: Temperature greater than 100.0(F) orally (10/10/2016 19:58:Franci Maguire RN) Hypertension Signs/Symptoms: Severe headache which is not relieved 30 minutes after taking Tylenol(Acetaminophen); Blurry vision or spots before your eyes; Severe heartburn or pain on the upper right side of your abdomen that is not relieved by an antacid; Increased swelling in your face, hands or feet (10/10/2016 19:58:Franci Maguire RN) Urinary Output: Decreased urinary output or dark colored urine (10/10/2016 19:58:Franci Maguire RN)
== END 2016-10-10 19:59 | disposition home or self-care (01) ==
LOC: LC 18:32
PROVIDERS: ATTEND Obstetrics & Gynecology
PROC: 4A1HXCZ Monitoring of Products of Conception, Cardiac Rate, External Approach (ICD-10-PCS; principal; 2016-10-10)
DX: Z34.93 Encounter for supervision of normal pregnancy, unspecified, third trimester (principal); Z3A.38 38 weeks gestation of pregnancy
CPT/HCPCS: 59025; 81005; 80307; S0119

== ENCOUNTER 2016-10-14 18:05 | Outpatient (CLI) | payer MEDICAID ==
--- NOTE | 2016-10-14 19:01 | Non Stress Test Report ---
Non Stress Test Datetime Report Generated by CPN: 10/14/2016 19:00 DEMOGRAPHIC EGA NST: 39.2 INDICATION Indication for Study: Ordered by Provider Indication for Study (NST) Other: growth lag MONITORING Monitor Explained: Monitor Explained; Test Explained; Patient Verbalized Understanding Time on Monitor: 10/14/2016 18:23 Time off Monitor: 10/14/2016 18:52 NST Duration: 29 NST INTERVENTIONS NST Interventions: Reposition Patient Physician Notified NST: Dr. Dale BABY A: [id number] BABY A Movement : Present Contraction Frequency : none FHR Baseline : 140 Accelerations : 15X15 Decelerations : None Variability : Moderate 6-25bpm NST Review: Meets Criteria for Reactive NST NST Review and Verified By : A. Jhoan RN NST Results: Reactive NST REPORT Report Trigger: Send Report
--- NOTE | 2016-10-15 04:46 | L&D Discharge Summary ---
OB Discharge Summary Datetime Report Generated by CPN: 10/15/2016 04:45 DISCHARGE DIAGNOSIS Diagnosis/Symptoms: Reassuring Surveillance - Annotate Details Diagnoses/Symptoms Other: Reactive NST Gestation: 39.2 Number of Babies in Womb: 1 Parity: 1 DIET/ACTIVITY/RESTRICTIONS Diet: Regular Activity: Normal Activity TEACHING/INSTRUCTIONS/REFERRALS Instructions Given To: pt Instructions Understood: Patient Verbalized Understanding Referrals: None Educational Materials- Other: kick counts and term labor signs reviewed with pt DISCHARGE INFORMATION Discharged AMA: No Discharge Date/Time: 10/14/2016 18:59 Discharged To: Home Discharge Provider Name: Dr. Dale Accompanied By: Self Discharge Method: Ambulatory Condition: Stable FOLLOW UP INFORMATION Follow Up With: [facility] Follow Up On: As Scheduled Follow Up Phone Number: [facility] - Comments: PT ambulated off unit in stable condition with [place]za pitcher in hand. Instructed to drink 4-6 pitchers daily and instructed on when to return to hospital. PT informed to follow up at [facility] at next appointment as scheduled or sooner as needed. No questions or concerns expressed by pt at this time. GENERAL INSTR-CALL PROVIDER IF: Contractions: Contractions or cramps become more frequent than 8 in one hour or 4 in 20 minutes; Regular painful contractions every 5 minutes or less for one hour. Time your contractions from the beginning of one to the beginning of the next Pressure: Pressure in your vagina or lower abdomen that may feel like the baby is pushing down Period Like Cramps: Period-like cramps or low dull backache that may come and go Cramps/Diarrhea: Abdominal cramps that may be accompanied by diarrhea Gush of Fluid/Blood: Gush of fluid or blood from your vagina (it is normal to have spotting after vaginal exam or intercourse) Vaginal Discharge: Change in the type or amount of vaginal discharge Decreased Movement: Your baby is not moving as much as usual- 4 movements in 1 hour after drinking and resting on side Temperature: Temperature greater than 100.0(F) orally
--- NOTE | 2016-10-15 04:46 | Antepartum Discharge Summary ---
Antepartum DC Datetime Report Generated by CPN: 10/15/2016 04:45 DIET/ACTIVITY/RESTRICTIONS Diet: Regular (10/14/2016 18:43:Donna Jhoan, RN) Activity: Normal Activity (10/14/2016 18:43:Donna Jhoan, RN) TEACHING/INSTRUCTIONS/REFERRALS Instructions Given To: pt (10/14/2016 18:43:Donnajeff Staples, RN) Instructions Understood: Patient Verbalized Understanding (10/14/2016 18:43:Donna Jhoan, RN) Referrals: None (10/14/2016 18:43:Donna Staples RN) Educational Materials- Other: kick counts and term labor signs reviewed with pt (10/14/2016 18:43:Donna Staples RN) DISCHARGE INFORMATION Discharged AMA: No (10/14/2016 18:43:Donna Staples RN) Discharge Date/Time: 10/14/2016 18:59 (10/14/2016 18:43:Donna Staples RN) Discharged To: Home (10/14/2016 18:43:Donna Staples RN) Discharge Provider Name: Dr. Dale (10/14/2016 18:43:Donna Staples RN) Discharge Method: Ambulatory (10/14/2016 18:43:Donna Staples RN) Condition: Stable (10/14/2016 18:43:Donna Staples RN) FOLLOW UP INFORMATION Follow Up With: [facility] (10/14/2016 18:43:Donna Staples RN) Follow Up On: As Scheduled (10/14/2016 18:43:Donna Staples RN) Follow Up Phone Number: [facility] - (10/14/2016 18:43:Donna Staples RN) Comments: PT ambulated off unit in stable condition with [place] pitcher in hand. Instructed to drink 4-6 pitchers daily and instructed on when to return to hospital. PT informed to follow up at [facility] at next appointment as scheduled or sooner as needed. No questions or concerns expressed by pt at this time. (10/14/2016 18:43:Donna Staples RN)
--- NOTE | 2016-10-15 04:46 | L&D General Admission ---
General Admit Datetime Report Generated by CPN: 10/15/2016 04:45 INFORMATION Para: 1 (10/14/2016 18:43:Donna Jhoan, RN) Baby, Number in Womb: 1 (10/14/2016 18:43:Donna Jhoan, RN) DEMOGRAPHICS Next of Kin Name: IVETTE MASSEY (10/14/2016 18:05:QS system process) Next of Kin (10/14/2016 18:05:QS system process) Next of Kin Relationship: SPO (10/14/2016 18:05:QS system process)
--- NOTE | 2016-10-15 04:46 | L&D Flow Sheet ---
LD Flowsheet Datetime Report Generated by CPN: 10/15/2016 04:45 Datetime: 10/14/2016 18:49 Communication Comments: Dr. Dale called and informed of pt FHR tracing. MD familiar with pt from prior report from CNM who saw pt in the office. Order recieved to d/c pt home (Donna Jhoan, RN) Datetime: 10/14/2016 18:28 Vital Signs NBP Sys/Genny/Mean (mmHg): 110 (QS system process) : 71 (QS system process) : 83 (QS system process) Pulse: 109 (QS system process) Communication Communication: pt here for repeat NST (Donna Jhoan, RN) LaborFlag: Antepartum (QS system process) Datetime: 10/14/2016 18:26 Patient Care Patient Position/Activity: Right Lateral (Donna Staples RN) I/O Interventions: Popsicle; Clear Liquids Given (Donna Staples RN)
--- NOTE | 2016-10-15 04:46 | L&D Admission Assessment ---
LD ADM ASMT Datetime Report Generated by CPN: 10/15/2016 04:45 WEIGHT Weight (lb): 189 (10/14/2016 19:04:QS system process) Weight (kg): 85.9 (10/14/2016 19:04:QS system process) BMI: 36.9 (10/14/2016 19:04:QS system process)
== END 2016-10-14 18:59 | disposition home or self-care (01) ==
LOC: LC 18:05
PROVIDERS: ATTEND Obstetrics & Gynecology
PROC: 4A1HXCZ Monitoring of Products of Conception, Cardiac Rate, External Approach (ICD-10-PCS; principal; 2016-10-14)
DX: Z34.93 Encounter for supervision of normal pregnancy, unspecified, third trimester (principal); Z3A.39 39 weeks gestation of pregnancy
CPT/HCPCS: 59025

== ENCOUNTER 2016-10-17 12:21 | Inpatient (IN) | payer MEDICAID ==
[2016-10-17 13:18] LABS: APPEARANCE,URINE SLIGHTLY-CLOUDY; BILIRUBIN,URINE NEGATIVE (NEGATIVE); GLUCOSE, URINE NEGATIVE (NEGATIVE); KETONES,URINE NEGATIVE (NEGATIVE); LEUKOCYTE ESTERASE,URINE LARGE (NEGATIVE); NITRITE,URINE NEGATIVE (NEGATIVE); PROTEIN,URINE NEGATIVE (NEGATIVE); URINE SPECIFIC GRAVITY 1.005; UROBILINOGEN,URINE NEGATIVE mg/dL (<2.0)
[2016-10-17 13:37] LABS: ABSOLUTE EOSINOPHILS # (AUTO) 0.1 10^3/uL (0.0-0.6); ABSOLUTE LYMPHOCYTES (AUTO) 1.4 10^3/uL (0.5-4.7); ABSOLUTE MONOCYTES (AUTO) 0.5 10^3/uL (0.1-1.4); ABSOLUTE NEUT (AUTO) 3.6 10^3/uL (1.7-8.2); BASOPHILS % (AUTO) 0.2 % (0-2); EOSINOPHILS % (AUTO) 1.1 % (0-6); HEMATOCRIT 28.1 % (36.0-47.0); HEMOGLOBIN 9.4 g/dL (12.0-15.5); HGB HCT DIFFERENCE 0.1; LYMPHOCYTES % (AUTO) 25.3 % (13-45); MEAN CORPUSCULAR HEMOGLOBIN 27.1 pg (27.0-33.4); MEAN CORPUSCULAR HGB CONC 33.4 g/dL (32.0-36.0); MEAN CORPUSCULAR VOLUME 81 fl (80-97); MONOCYTES % (AUTO) 9.1 % (3-13); RED BLOOD COUNT 3.47 10^6/uL (3.72-5.28); RED CELL DISTRIBUTION WIDTH 14.4 % (11.5-14.0); SEGMENTED NEUTROPHILS % (AUTO) 64.3 % (42-78); WHITE BLOOD COUNT 5.6 10^3/uL (4.0-10.5)
[2016-10-17 13:41] LABS: URINE BARBITURATES SCREEN NEGATIVE; URINE METHADONE SCREEN NEGATIVE; URINE PHENCYCLIDINE SCREEN NEGATIVE
[2016-10-17] MEDS ORDERED: DINOPROSTONE 10 MG VAGINAL INSERT.SR ONE (15:46)
[2016-10-17] MEDS: RINGERS SOLUTION,LACTATED 1,000 ML IV PRN (15:50)
--- NOTE | 2016-10-17 16:01 | L&D Flow Sheet ---
LD Flowsheet Datetime Report Generated by CPN: 10/17/2016 16:00 Datetime: 10/17/2016 15:33 NBP Sys/Genny/Mean (mmHg): 110 (QS system process) : 74 (QS system process) : 87 (QS system process) Pulse: 92 (QS system process) Datetime: 10/17/2016 14:33 Comments: monitors turned off, patient going to ultrasound (Aviva Marlatt, RN) Datetime: 10/17/2016 14:30 Monitor Mode: External (Aviva Marlatt, RN) Frequency (min): 4-8 (Aviva Marlatt, RN) Quality: Mild (Aviva Marlatt, RN) Duration (sec): 120-180 (Aviva Marlatt, RN) Resting Tone (Palpate): Relaxed (Aviva Marlatt, RN) Monitor Mode: External US (Aviva Marlatt, RN) FHR Baseline Rate : 125 (Aviva Marlatt, RN) Variability: Moderate 6-25 bpm (Aviva Marlatt, RN) Accelerations: 15X15 (Aviva Marlatt, RN) Decelerations: None (Aviva Marlatt, RN) Datetime: 10/17/2016 14:24 NBP Sys/Genny/Mean (mmHg): 113 (QS system process) : 74 (QS system process) : 89 (QS system process) Pulse: 86 (QS system process) Datetime: 10/17/2016 14:00 Monitor Mode: External; Palpation (Aviva Marlatt, RN) Frequency (min): x1 (Aviva Marlatt, RN) Quality: Mild (Aviva Marlatt, RN) Duration (sec): 180 (Aviva Marlatt, RN) Resting Tone (Palpate): Relaxed (Aviva Marlatt, RN) Monitor Mode: External US (Aviva Marlatt, RN) FHR Baseline Rate : 130 (Aviva Marlatt, RN) Variability: Moderate 6-25 bpm (Aviva Marlatt, RN) Accelerations: 15X15 (Aviva Marlatt, RN) Decelerations: None (Aviva Marlatt, RN) Datetime: 10/17/2016 13:58 Monitor Interventions for FHR: Ultrasound Adjusted (Aviva Marlatt, RN) Datetime: 10/17/2016 13:54 NBP Sys/Genny/Mean (mmHg): 110 (QS system process) : 72 (QS system process) : 87 (QS system process) Pulse: 94 (QS system process) Datetime: 10/17/2016 13:53 Procedures: Consents Signed (Aviva Hermosillo RN) Datetime: 10/17/2016 13:38 Communication: Provider Orders Received; Call/Page Placed to Provider (Aviva Hermosillo RN) Provider Notified (Name): Dr. Geiger (Aviva Hermosillo RN) Notification Reason: Status Update; Status (Aviva Hermosillo RN) Communication Comments: Mindy Moore [facility] notified Dr. Geiger of patient's admission for IUGR per Dr. Dale at the office. Reviewed ultrasound, history, and SVE. Received order to obtain ultrasound for growth and presentation. Begin induction by placing cervidil (Aviva Hermosillo RN) Datetime: 10/17/2016 13:37 Provider Reviewed Strip: Yes (Aviva Hermosillo RN) Communication: Provider Orders Received (Aviva Hermosillo RN) Communication Comments: Received order to let patient shower before placing cervidil per patient's request as long as NST remains reactive (Aviva Hermosillo RN) Datetime: 10/17/2016 13:30 Stage of : Recovery (Lien Cole RN) Monitor Mode: External (Aviva Hermosillo RN) Frequency (min): 0 (Aviva Hermosillo RN) Resting Tone (Palpate): Relaxed (Aviva Hermosillo RN) Monitor Mode: External US (Aviva Hermosillo RN) FHR Baseline Rate : 130 (Aviva Hermosillo RN) Variability: Moderate 6-25 bpm (Aviva Hermosillo RN) Accelerations: 15X15 (Aviva Marlatt, RN) Datetime: 10/17/2016 13:25 Monitor Interventions for FHR: Ultrasound Adjusted (Aviva Hermosillo, RN) Datetime: 10/17/2016 13:24 NBP Sys/Genny/Mean (mmHg): 117 (QS system process) : 75 (QS system process) : 91 (QS system process) Pulse: 96 (QS system process) Procedures: Labs Drawn (Aviva Hermosillo, RN) LaborFlag: Antepartum (QS system process) Datetime: 10/17/2016 13:22 Patient Position/Activity: Right Tilt; Semi-Fowlers (Aviva Hermosillo RN) Datetime: 10/17/2016 12:31 Additional Nursing Comments: Patient arrived on the unit with young child. Informed patient that someone needs to come watch the baby before we can do anything. Patient states someone is coming from [place]. (Aviva Hermosillo, SAEED)
[2016-10-17] MEDS ORDERED: ONDANSETRON HCL INJ/PF 4 MG/2 ML SDV ONE (19:20)
--- NOTE | 2016-10-17 20:00 | L&D Flow Sheet ---
LD Flowsheet Datetime Report Generated by CPN: 10/17/2016 20:00 Datetime: 10/17/2016 19:27 Antiemetics/Antacids: Zofran IV (mg) @ 8 (Aviva Marlatt, RN) Datetime: 10/17/2016 19:19 Patient Position/Activity: Right Lateral; Semi-Fowlers (Aviva Marlatt, RN) Datetime: 10/17/2016 19:15 Communication: Provider Orders Received; Call/Page Placed to Provider (Aviva Hermosillo RN) Provider Notified (Name): Dr. Geiger (Aviva Hermosillo RN) Notification Reason: Status Update; Status; Labor Status; Uterine Activity (Aviva Hermosillo RN) Communication Comments: Notified Dr. Geiger about patient's nausea. Received order to give 8mg of Zofran IV now, patient may have 10mg of Ambien at HS. Also received order to remove Cervidil at 0350, give patient an hour of to be off the monitors, take a shower, and eat if she'd like and then start pitocin 20units/1000mlNS at 2 miliunits/min; increase by 2milliunits/min every 30 minutes as tolerated until adequate contraction pattern is acheived or until maximum doese of 20 milliunits is reached. (Aviva Hermosillo RN) Datetime: 10/17/2016 19:14 I/O Interventions: Up to BR (Aviva Hermosillo RN) Datetime: 10/17/2016 18:35 Patient Position/Activity: High Fowlers (Aviva Hermosillo, RN) Patient Care Comments: Eating dinner (Aviva Bettylatt, RN) Datetime: 10/17/2016 18:30 Frequency (min): 2-6 (Aviva Valenzuelatt, RN) Quality: Mild/Moderate (Aviva Bettylatt, RN) Duration (sec): 120 (Aviva Bettylatt, RN) Resting Tone (Palpate): Relaxed (Aviva Bettylatt, RN) Monitor Mode: External US (Aviva Hernándezlatt, RN) FHR Baseline Rate : 125 (Aviva Bettylatt, RN) Variability: Moderate 6-25 bpm (Aviva Marlatt, RN) Accelerations: 15X15 (Aviva Marlatt, RN) Decelerations: None (Aviva Bettylatt, RN) I/O Interventions: Up to BR (Aviva Marlatt, RN) Datetime: 10/17/2016 18:00 Monitor Mode: External (Aviva Marlatt, RN) Frequency (min): x2 (Aviva Marlatt, RN) Quality: Mild/Moderate (Aviva Marlatt, RN) Duration (sec): 90-100 (Aviva Marlatt, RN) Resting Tone (Palpate): Relaxed (Aviva Marlatt, RN) Monitor Mode: External US (Aviva Marlatt, RN) FHR Baseline Rate : 120 (Aviva Marlatt, RN) Variability: Moderate 6-25 bpm (Aviva Marlatt, RN) Accelerations: 15X15 (Aviva Marlatt, RN) Decelerations: None (Aviva Marlatt, RN) Datetime: 10/17/2016 17:41 Monitor Interventions for UA: [place] Adjusted (Aviva Marlatt, RN) Datetime: 10/17/2016 17:31 I/O Interventions: Up to BR (Aviva Marlatt, RN) Datetime: 10/17/2016 17:30 Monitor Mode: External (Aviva Marlatt, RN) Frequency (min): 4.5-9.5 (Aviva Marlatt, RN) Quality: Mild (Aviva Marlatt, RN) Duration (sec): 70-230 (Aviva Marlatt, RN) Resting Tone (Palpate): Relaxed (Aviva Marlatt, RN) Monitor Mode: External US (Aviva Marlatt, RN) FHR Baseline Rate : 130 (Aviva Marlatt, RN) Variability: Moderate 6-25 bpm (Aviva Marlatt, RN) Accelerations: 15X15 (Aviva Marlatt, RN) Decelerations: None (Aviva Marlatt, RN) Datetime: 10/17/2016 17:00 Monitor Mode: External (Aviva Marlatt, RN) Frequency (min): 6-12 (Aviva Marlatt, RN) Quality: Mild (Aviva Marlatt, RN) Duration (sec): 140-180 (Aviva Marlatt, RN) Resting Tone (Palpate): Relaxed (Aviva Marlatt, RN) Monitor Mode: External US (Aviva Marlatt, RN) FHR Baseline Rate : 120 (Aviva Marlatt, RN) Variability: Moderate 6-25 bpm (Aviva Marlatt, RN) Accelerations: 15X15 (Aviva Marlatt, RN) Decelerations: None (Aviva Marlatt, RN) Datetime: 10/17/2016 16:30 Monitor Mode: External (Aviva Marlatt, RN) Frequency (min): x2 (Aviva Marlatt, RN) Quality: Mild (Aviva Marlatt, RN) Duration (sec): 90-190 (Aviva Marlatt, RN) Resting Tone (Palpate): Relaxed (Aviva Marlatt, RN) Monitor Mode: External US (Aviva Marlatt, RN) FHR Baseline Rate : 120 (Aviva Marlatt, RN) Variability: Moderate 6-25 bpm (Aviva Marlatt, RN) Accelerations: 15X15 (Aviva Marlatt, RN) Decelerations: None (Aviva Marlatt, RN) Datetime: 10/17/2016 16:08 Monitor Interventions for FHR: Ultrasound Adjusted (Aviva Biancacass, RN) Datetime: 10/17/2016 16:06 Communication: RN at Bedside; Provider at Bedside (Aviva Hermosillo RN) Communication Comments: Dr. Geiger at bedside discussing plan of care. Reviewed reassuring results of the ultrasound and gave the patient the option to cancel induction. Patient states she would like to continue with the induction as planned. (Aviva Hermosillo RN) Datetime: 10/17/2016 16:04 Provider Reviewed Strip: Yes (Aviva Hermosillo RN) Communication: Call/Page Placed to Provider (Aviva Hermosillo RN) Provider Notified (Name): Dr. Geiger (Aviva Hermosillo RN) Communication Comments: Notified provider of ultrasound. Provider reviewed ultrasound on the unit (Aviva Hermosillo RN) Datetime: 10/17/2016 16:00 Monitor Mode: External (Aviva Hermosillo RN) Frequency (min): x1 (Aviva Hermosillo RN) Quality: Mild (Aviva Hermosillo RN) Duration (sec): 110 (Aviva Hermosillo RN) Resting Tone (Palpate): Relaxed (Aviva Hermosillo RN) Monitor Mode: External US (Aviva Hermosillo RN) FHR Baseline Rate : 135 (Aviva Hermosillo RN) Variability: Moderate 6-25 bpm (Aviva Hermosillo RN) Accelerations: 15X15 (Aviva Hermosillo RN) Decelerations: None (Aviva Hermosillo RN)
[2016-10-17] MEDS ORDERED: ZOLPIDEM TARTRATE 5 MG TABLET ONE (20:04)
[2016-10-17] MEDS ORDERED: PROMETHAZINE HCL INJ 25 MG/1 ML VIAL IV ONE (23:31)
[2016-10-17] MEDS ORDERED: NALBUPHINE HCL INJ 10 MG/1 ML AMPULE INJ ONE (23:31)
[2016-10-17] MEDS ORDERED: NALBUPHINE HCL INJ 10 MG/1 ML AMPULE ONE (23:34)
[2016-10-17] MEDS ORDERED: PROMETHAZINE HCL INJ 25 MG/1 ML VIAL ONE (23:34)
[2016-10-18] MEDS: RINGERS SOLUTION,LACTATED 1,000 ML IV PRN (01:16)
[2016-10-18] MEDS ORDERED: LIDOCAINE 1% INJ-PF (10 MG/ML) 30 ML SDV ONE (03:54)
[2016-10-18] MEDS ORDERED: OXYTOCIN/NORMAL SALINE 20 UNIT/1,000 ML RTUINJ ONE (03:54)
[2016-10-18] MEDS ORDERED: MISOPROSTOL 0.2 MG TABLET ONE (03:54)
[2016-10-18] MEDS ORDERED: EPHEDRINE SULFATE INJ 50 MG/1 ML AMPULE ONE (03:54)
[2016-10-18] MEDS ORDERED: FENTANYL/BUPIVACAINE/NS/PF 200 MCG/100 ML RTUINJ EPI ONE (03:54)
[2016-10-18] MEDS ORDERED: BUPIVACAINE HCL 0.25 % INJ/PF (2.5 MG/1 ML) 30 ML VIAL ONE (03:54)
[2016-10-18] MEDS ORDERED: FENTANYL/BUPIVACAINE/NS/PF 100 ML EPI PRN (03:57)
[2016-10-18] MEDS ORDERED: BUPIVACAINE HCL 0.25 % INJ/PF (2.5 MG/1 ML) 30 ML VIAL INFIL ONE (03:57)
[2016-10-18] MEDS ORDERED: BENZOIN/ALOE VERA/STORAX/TOLU TINCTURE 60 ML TP PRN (03:57)
[2016-10-18] MEDS ORDERED: EPHEDRINE SULFATE INJ 50 MG/1 ML AMPULE IV PRN (03:57)
[2016-10-18] MEDS ORDERED: ZOLPIDEM TARTRATE 5 MG TABLET PO PRN (04:35)
[2016-10-18] MEDS ORDERED: DIBUCAINE 1% OINTMENT 28 GM TP PRN (04:35)
[2016-10-18] MEDS ORDERED: PROMETHAZINE HCL 25 MG TABLET PO PRN (04:35)
[2016-10-18] MEDS ORDERED: MEASLES,MUMPS&RUBELLA VACC/PF 0.5 ML VIAL SUBCUT PRN (04:35)
[2016-10-18] MEDS ORDERED: GLYCERIN/WITCH HAZEL LEAF 1 EACH MED..PAD TP PRN (04:35)
[2016-10-18] MEDS ORDERED: ACETAMINOPHEN WITH CODEINE #3 TABLET PO PRN (04:35)
[2016-10-18] MEDS ORDERED: DIPH/PERTUSS(ACELL)/TETANUS VAC/PF 0.5 ML SYR (>=10YO) IM PRN (04:35)
[2016-10-18] MEDS ORDERED: ACETAMINOPHEN 650 MG SUPP.RECT PR PRN (04:35)
[2016-10-18] MEDS ORDERED: PROMETHAZINE HCL INJ 25 MG/1 ML VIAL IV PRN (04:35)
[2016-10-18] MEDS ORDERED: NA PHOS,M-B/NA PHOS,DI-BA (ADULT) 133 ML ENEMA PR PRN (04:35)
[2016-10-18] MEDS ORDERED: BENZOCAINE/MENTHOL AEROSOL SPRAY 56 ML TOP PRN (04:35)
[2016-10-18] MEDS ORDERED: DIPHENHYDRAMINE HCL 25 MG CAPSULE PO PRN (04:35)
[2016-10-18] MEDS ORDERED: MAGNESIUM HYDROXIDE SUSP 30 ML UDCUP PO PRN (04:35)
[2016-10-18] MEDS ORDERED: OXYTOCIN/NORMAL SALINE 1,000 ML IV PRN (04:35)
[2016-10-18] MEDS ORDERED: PSEUDOEPHEDRINE HCL 30 MG TABLET PO PRN (04:35)
[2016-10-18] MEDS ORDERED: PROMETHAZINE HCL 25 MG SUPP.RECT PR PRN (04:35)
--- NOTE | 2016-10-18 05:17 | Delivery Summary ---
Del Sum A-C Datetime Report Generated by CPN: 10/18/2016 05:17 ADMISSION DATA Chief Complaint: Signs/Symptoms Gestational HTN Indication for Induction: IUGR Admission Impression: Term, Intrauterine Admit Provider Comments: IOL for 3 wk lag in AC GBS neg Proven for 7lbs 15oz DELIVERY PERSONNEL Delivery Doctor:: Tray Geiger MD Labor and Delivery Nurse:: Alexandrea Hsu RNpaying teller Nurse:: Ramandeep Redmond RN Nursery Nurse:: Lorin Schuch, RN Resident Medical Officer/GREEN PROMOTIONS SPECIALIST: Silvana Kt, ST MATERNAL INFORMATION Delivery Anesthesia: None Medications After Delivery: Pitocin Drip 20 Units/1000ml NSS Estimated Blood Loss (ml): 250 Maternal Complications: Precipitous Labor (<3hrs) LABOR SUMMARY EDC: 10/18/2016 00:00 No. Babies in Womb: 1 Attempted: No Labor Anesthesia: IV Sedation LABOR INFORMATION Reason for Induction: Intrauterine Growth Retardation Onset of Labor: 10/18/2016 03:51 Complete Dilatation: 10/18/2016 04:08 Cervical Ripening Agents: Cervidil Group B Beta Strep: neg Steroids Given: None Reason Steroids Not Administered: Not Applicable MEMBRANES Membranes Rupture Method: Spontaneous Rupture of Membranes: 10/18/2016 04:10 Length of Rupture (hr): 0.03 Amniotic Fluid Color: Light Meconium Amniotic Fluid Amount: Moderate Amniotic Fluid Odor: Normal STAGES OF LABOR Stage 1 hr: 0 Stage 1 min: 17 Stage 2 hr: 0 Stage 2 min: 4 Stage 3 hr: 0 Stage 3 min: 4 Total Time in Labor hr: 0 Total Time in Labor min: 25 VAGINAL DELIVERY Episiotomy: None Laceration Extension: Second Degree Laceration Type: Perineal Laceration Repair: Yes Laceration Repair Note: small perineal lac repaired with one 3-0 chromic suture Sponge Count Correct: Yes; Vaginal Sweep Performed Sharps Count Correct: Yes CSECTION DELIVERY Primary Indication: N/A Secondary Indication: N/A CSection Incidence: N/A Labor: N/A Elective: N/A CSection Incision: N/A BABY A INFORMATION Infant Delivery Date/Time: 10/18/2016 04:12 Method of Delivery: Vaginal Born in Route : No : N/A Forceps: N/A Vacuum Extraction: N/A Shoulder Dystocia : No PRESENTATION/POSITION BABY A Presentation: Cephalic Cephalic Presentation: Vertex Vertex Position: Left Occipital Anterior Breech Presentation: N/A PLACENTA INFORMATION BABY A Placenta Delivery Time : 10/18/2016 04:16 Placenta Method of Delivery: Spontaneous Placenta Status: Delivered SCORES BABY A Heart Rate 1 min: >100 bpm Resp Effort 1 min: Good Cry Reflex Irritability 1 min: Cough or Sneeze or Pulls Away Muscle Tone 1 min: Active Motion Color 1 min: Blue/Pale Resuscitation Effort 1 min: Tactile Stimulation SCORE 1 MIN: 8 Heart Rate 5 min: >100 bpm Resp Effort 5 min: Good Cry Reflex Irritability 5 min: Cough or Sneeze or Pulls Away Muscle Tone 5 min: Active Motion Color 5 min: Body [place], Extremities Blue Resuscitation Effort 5 min: Tactile Stimulation SCORE 5 MIN: 9 INFANT INFORMATION BABY A Gestational Age at Delivery: 40.0 Gestational Status: Full Term- 39- 40.6 Weeks Infant Outcome : Liveborn Infant Condition : Stable Infant Sex: Male IDENTIFICATION BABY A Infant Verification Date/Time: 10/18/2016 04:46 ID Band Number: [id number] Mother's Name Verified: Yes RN Verifying : R Sanjay, RNC Additional Verifying Personnel: C [place], RN WEIGHT/LENGTH BABY A Birthweight (gm): 3235 Weight (lb): 7 Weight (oz): 2 Infant Length (in): 20.00 Length (cm): 50.80 CORD INFORMATION BABY A No. Cord Vessels: 3 Nuchal Cord : N/A Cord Blood Taken: Yes-For Storage (Mom's Blood type +) Suction: None ASSESSMENT BABY A Complications: None Physical Findings at Delivery: Within Normal Limits Respirations: Appears Normal Skin to Skin: Yes Skin to Skin Time (min): 10 Train Master/ALS Called : No Infant Care By: Rissa Vasquez RN Transferred To: Remains with Mother SIGNATURES Signature: with User ID: [email or web address] : I personally evaluated and examined the patient in conjunction with the MLP and agree with the assessment, treatment plan and disposition.
--- NOTE | 2016-10-18 05:18 | Delivery Summary ---
Del Sum A-C Datetime Report Generated by CPN: 10/18/2016 05:18 ADMISSION DATA Chief Complaint: Signs/Symptoms Gestational HTN Indication for Induction: IUGR Admission Impression: Term, Intrauterine Admit Provider Comments: IOL for 3 wk lag in AC GBS neg Proven for 7lbs 15oz DELIVERY PERSONNEL Delivery Doctor:: Tray Geiger MD Labor and Delivery Nurse:: Alexandrea Hsu RNtruck driver rubbish collector Nurse:: Ramandeep Redmond RN Nursery Nurse:: Lorin Schuch, RN Canceling And Cutting Control Clerk/UNSTACKER: Silvana Kt, ST MATERNAL INFORMATION Delivery Anesthesia: None Medications After Delivery: Pitocin Drip 20 Units/1000ml NSS Estimated Blood Loss (ml): 250 Maternal Complications: Precipitous Labor (<3hrs) LABOR SUMMARY EDC: 10/18/2016 00:00 No. Babies in Womb: 1 Attempted: No Labor Anesthesia: IV Sedation LABOR INFORMATION Reason for Induction: Intrauterine Growth Retardation Onset of Labor: 10/18/2016 03:51 Complete Dilatation: 10/18/2016 04:08 Cervical Ripening Agents: Cervidil Group B Beta Strep: neg Steroids Given: None Reason Steroids Not Administered: Not Applicable MEMBRANES Membranes Rupture Method: Spontaneous Rupture of Membranes: 10/18/2016 04:10 Length of Rupture (hr): 0.03 Amniotic Fluid Color: Light Meconium Amniotic Fluid Amount: Moderate Amniotic Fluid Odor: Normal STAGES OF LABOR Stage 1 hr: 0 Stage 1 min: 17 Stage 2 hr: 0 Stage 2 min: 4 Stage 3 hr: 0 Stage 3 min: 4 Total Time in Labor hr: 0 Total Time in Labor min: 25 VAGINAL DELIVERY Episiotomy: None Laceration Extension: Second Degree Laceration Type: Perineal Laceration Repair: Yes Laceration Repair Note: small perineal lac repaired with one 3-0 chromic suture Sponge Count Correct: Yes; Vaginal Sweep Performed Sharps Count Correct: Yes CSECTION DELIVERY Primary Indication: N/A Secondary Indication: N/A CSection Incidence: N/A Labor: N/A Elective: N/A CSection Incision: N/A BABY A INFORMATION Infant Delivery Date/Time: 10/18/2016 04:12 Method of Delivery: Vaginal Born in Route : No : N/A Forceps: N/A Vacuum Extraction: N/A Shoulder Dystocia : No PRESENTATION/POSITION BABY A Presentation: Cephalic Cephalic Presentation: Vertex Vertex Position: Left Occipital Anterior Breech Presentation: N/A PLACENTA INFORMATION BABY A Placenta Delivery Time : 10/18/2016 04:16 Placenta Method of Delivery: Spontaneous Placenta Status: Delivered SCORES BABY A Heart Rate 1 min: >100 bpm Resp Effort 1 min: Good Cry Reflex Irritability 1 min: Cough or Sneeze or Pulls Away Muscle Tone 1 min: Active Motion Color 1 min: Blue/Pale Resuscitation Effort 1 min: Tactile Stimulation SCORE 1 MIN: 8 Heart Rate 5 min: >100 bpm Resp Effort 5 min: Good Cry Reflex Irritability 5 min: Cough or Sneeze or Pulls Away Muscle Tone 5 min: Active Motion Color 5 min: Body [place], Extremities Blue Resuscitation Effort 5 min: Tactile Stimulation SCORE 5 MIN: 9 INFANT INFORMATION BABY A Gestational Age at Delivery: 40.0 Gestational Status: Full Term- 39- 40.6 Weeks Infant Outcome : Liveborn Infant Condition : Stable Infant Sex: Male IDENTIFICATION BABY A Infant Verification Date/Time: 10/18/2016 04:46 ID Band Number: [id number] Mother's Name Verified: Yes RN Verifying : R Sanjay, RNC Additional Verifying Personnel: C [place], RN WEIGHT/LENGTH BABY A Birthweight (gm): 3235 Weight (lb): 7 Weight (oz): 2 Infant Length (in): 20.00 Length (cm): 50.80 CORD INFORMATION BABY A No. Cord Vessels: 3 Nuchal Cord : N/A Cord Blood Taken: Yes-For Storage (Mom's Blood type +) Suction: None ASSESSMENT BABY A Complications: None Physical Findings at Delivery: Within Normal Limits Respirations: Appears Normal Skin to Skin: Yes Skin to Skin Time (min): 10 B2B Sales Manager/ALS Called : No Infant Care By: Rissa Vasquez RN Transferred To: Remains with Mother SIGNATURES Signature: with User ID: [email or web address] : I personally evaluated and examined the patient in conjunction with the MLP and agree with the assessment, treatment plan and disposition.
[2016-10-18] MEDS ORDERED: IBUPROFEN 800 MG TABLET PO SCH (06:00)
--- NOTE | 2016-10-18 06:23 | L&D Current Admission ---
Current Admit Datetime Report Generated by CPN: 10/18/2016 06:00 ADMISSION INFORMATION Current Admit Date/Time: 10/17/2016 12:31 (10/10/2016 19:24:Aviva Hermosillo RN) Reason for Admission: Induction of Labor (10/10/2016 19:24:Aviva Hermosillo RN) Chief Complaint: Scheduled Induction of Labor (10/10/2016 19:24:Aviva Hermosillo RN) EGA per Dates: 39.6 (10/10/2016 19:24:QS system process) Method of Arrival: Ambulatory (10/10/2016 19:24:Aviva Hermosillo RN) Admitted From: [facility] Office (10/10/2016 19:24:Aviva Hermosillo RN) Reason for Induction: Intrauterine Growth Retardation; Other (10/10/2016 19:24:Aviva Hermosillo RN) Reason for Induction- Other: 3 week growth lag (10/10/2016 19:24:Aviva Hermosillo RN) Records Available: Yes (10/10/2016 19:24:Aviva Hermosillo RN) General Admission Information: Reviewed; Updated; Confirmed (10/10/2016 19:24:Aviva Hermosillo RN) General Admission Reviewed By: Chema Hermosillo RN (10/10/2016 19:24:Aviva Hermosillo RN) LEARNING ASSESSMENT Knowledge Level: Understands L_D Process (10/10/2016 19:24:Aivva Hermosillo RN) Barriers to Learning: None (10/10/2016 19:24:Aviva Hermosillo RN) Learning Readiness: Motivated (10/10/2016 19:24:Aviva Hermosillo RN) Learns Best By: 1 to 1 Instruction (10/10/2016 19:24:Aviva Hermosillo RN) Learning Needs: Labor and Delivery Process; Pain Management; Symptoms to Report; Treatment Plan; Medication; Community Resources (10/10/2016 19:24:Aviva Hermosillo RN) DOMESTIC VIOLANCE SCREENING Dom Viol Threatened/Hurt: No (10/10/2016 19:24:Aviva Hermosillo RN) Hx of Abuse/Neglect past 2yrs: No (10/10/2016 19:24:Aviva Hermosillo RN) Feel Unsafe Going Home: No (10/10/2016 19:24:Aviva Hermosillo RN) Addt'l Observ Indicating Abuse: No (10/10/2016 19:24:Aviva Hermosillo RN) Reason Unable to Complete Screen: N/A, Screen Completed (10/10/2016 19:24:Aviva Hermosillo RN) Considered Personal Harm/Suicide: No (10/10/2016 19:24:Aviva Hermosillo RN) NUTRITIONAL/FUNCTIONAL SCREENING Problem with Appetite >5 Days: No (10/10/2016 19:24:Aviva Hermosillo RN) Chew/Swallow Difficulties: No (10/10/2016 19:24:Aviva Hermosillo RN) Inappropriate Wt Gain/Loss: No (10/10/2016 19:24:Aviva Hermosillo RN) Presence Skin Breakdown/Ulcer: No (10/10/2016 19:24:Aviva Hermosillo RN) Special Diet: No (10/10/2016 19:24:Aviva Hermosillo RN) Pt Requests Solo Truck Driver Visit: No (10/10/2016 19:24:Aviva Hermosillo RN) Hx of Any of the Following?: N/A (10/10/2016 19:24:Aviva Hermosillo RN) New Diagnosis of: N/A (10/10/2016 19:24:Aviva Hermosillo RN) Requires Assist w/Ambulation: No (10/10/2016 19:24:Aviva Hermosillo RN) Uses Assist Device to Ambulate: No (10/10/2016 19:24:Aviva Hermosillo RN) Pt Requires Help w/ADL's: No (10/10/2016 19:24:Aviva Hermosillo RN)
--- NOTE | 2016-10-18 06:23 | L&D General Admission ---
General Admit Datetime Report Generated by CPN: 10/18/2016 06:00 INFORMATION Patient Age: 21 (08/22/2016 22:36:QS system process) EDC: 10/18/2016 00:00 (08/22/2016 23:25:Aviva Hermosillo RN) : 2 (08/22/2016 23:25:Cierra Remy RN) Para: 1 (10/14/2016 18:43:Donna Staples RN) Term: 1 (08/22/2016 23:25:Cierra Remy RN) : 0 (08/22/2016 23:25:Cierra Remy RN) Spontaneous Abortions: 0 (08/22/2016 23:25:Cierra Rmey RN) Induced Abortions: 0 (08/22/2016 23:25:Cierra Remy RN) Livin (08/22/2016 23:25:Barbie Devine RN) Cesareans: 0 (08/22/2016 23:25:Cierra Remy RN) VBACs: 0 (08/22/2016 23:25:Cierra Remy RN) Ectopic: 0 (08/22/2016 23:25:Cierra Remy RN) Multiple Births: 0 (08/22/2016 23:25:Cierra Remy RN) Baby, Number in Womb: 1 (10/14/2016 18:43:Donna Staples RN) CARE Primary Business Development Associate: Other-Annotate (08/22/2016 23:25:Cierra Remy RN) Business Development Associate Other: [employer] [facility] today (08/22/2016 23:25:Aviva Hermosillo RN) Adequate Care: No (08/22/2016 23:25:Cierra Remy RN) Height (in): 60 (08/23/2016 00:53:QS system process) ALLERGIES Medication Allergy: No (08/22/2016 23:25:Cierra Remy RN) Medication Allergies: No Known Allergies (10/17/2016) (10/17/2016 14:40:QS system process) Latex Allergy: No Latex Allergies (08/22/2016 23:25:Cierra Remy RN) Food Allergies: None (08/22/2016 23:25:Cierra Remy RN) Environmental Allergies: None (08/22/2016 23:25:Cierra Remy RN) COMMUNICATION Primary Language: Qatari (08/22/2016 23:25:Cierra Remy RN) Medical Tx Preferred Language: Qatari (08/22/2016 23:25:Cierra Remy RN) Communication Barrier(s): None (08/22/2016 23:25:Cierra Remy RN) DEMOGRAPHICS Address: [address] [place] [id number] (08/22/2016 22:40:QS system process) Zipcode: [address] (08/22/2016 22:36:QS system process) Home (09/25/2016 18:27:QS system process) Work (09/25/2016 18:27:QS system process) SSN: [id number] (08/22/2016 22:36:QS system process) Next of Kin Name: IVETTE MASSEY (10/14/2016 18:05:QS system process) Next of Kin (10/14/2016 18:05:QS system process) Next of Kin Relationship: SPO (10/14/2016 18:05:QS system process) Date of : 1995 (08/22/2016 22:36:QS system process) Marital Status: (08/22/2016 22:40:QS system process) Sex: Female (08/22/2016 22:36:QS system process) Race: (08/22/2016 22:40:QS system process) Ethnicity: Non- or (08/22/2016 22:40:QS system process) Rastafarian: None (08/22/2016 22:40:QS system process) DRUG AND ALCOHOL USE Alcohol: No (08/22/2016 23:25:Cierra Remy RN) Cigarettes: Never Smoker. [id number] (08/22/2016 23:25:Cierra Remy RN) Marijuana: No (08/22/2016 23:25:Cierra Remy RN) Cocaine: No (08/22/2016 23:25:Cierra Remy RN) Other Illicit Drugs: No (08/22/2016 23:25:Cierra Remy RN) VACCINE HISTORY Influenza Vaccine: No (08/22/2016 23:25:Cierra Remy RN) Pneumococcal Vaccine: No (08/22/2016 23:25:Cierra Remy RN) Tetanus Vaccine: No (08/22/2016 23:25:Cierra Remy RN) Tdap Vaccine: No (08/22/2016 23:25:Cierra Remy RN) Hepatitis B Vaccine: Yes (08/22/2016 23:25:Cierra Remy RN) Cutter Out: Dr. Lopez (08/22/2016 23:25:Aviva Hermosillo RN) Feeding Preference: Both (08/22/2016 23:25:Franci Maguire RN) Benefit of Breast Feed Discussed: Yes (08/22/2016 23:25:Franci Maguire RN) Circumcision: Yes (08/22/2016 23:25:Franci Maguire RN) Classes Attended: No (08/22/2016 23:25:Franci Maguire RN) Tubal Ligation: No (08/22/2016 23:25:Cierra Remy RN) Tubal Authorization Signed: N/A (08/22/2016 23:25:Cierra Remy RN) Consent: N/A (08/22/2016 23:25:Cierra Remy RN) Consent Signed: N/A (08/22/2016 23:25:Cierra Remy RN) Pain Management Plans: Epidural (08/22/2016 23:25:Franci Maguire, RN) Plans for Labor and Delivery: None (08/22/2016 23:25:Franci Maguire, RN) Support Person: Svitlana Wagner (08/22/2016 23:25:Aviva Hermosillo RN) Support Person Relationship: Friend (08/22/2016 23:25:Aviva Hermosillo, SAEED) Other Relationship: Noel Massey - in [place] (08/22/2016 23:25:Aviva Hermosillo, SAEED) Cultural/Spritual Practice: No (08/22/2016 23:25:Cierra Remy RN) Spir/Cult Dietary Needs: No (08/22/2016 23:25:Cierra Remy RN) LIVING SITUATION/DISCHARGE PLAN Living Arrangements: House (08/22/2016 23:25:Cierra Remy RN) Adequate Access to:: Electric; Heat; Refrigeration; Plumbing/Running water; Phone; Transportation (08/22/2016 23:25:Cierra Remy RN) WIC Program: No (08/22/2016 23:25:Cierra Remy RN) Discharge Insurance Salesperson Person: Svitlana Bernard (08/22/2016 23:25:Aviva Hermosillo RN) Currently Using Commun Resources: Yes (08/22/2016 23:25:Cierra Remy RN) Specify Current Resource Used: EBT (08/22/2016 23:25:Cierra Remy RN) Outside Agency/Dedenter: No (08/22/2016 23:25:Cierra Remy RN) Car Seat for Discharge: Yes (08/22/2016 23:25:Franci Maguire RN) Adoption Requested: No (08/22/2016 23:25:Cierra Remy RN) Pt Contact w/infant Post : N/A (08/22/2016 23:25:Cierra Remy RN) LABS Blood Type: O Positive (08/22/2016 23:25:Elysia Luong RN) Antibody Screen: Negative (08/22/2016 23:25:Elysia Luong RN) Rho(G) this : Not Applicable (08/22/2016 23:25:Elysia Luong RN) Hemoglobin: 9.4 L (10/17/2016 13:25:QS system process) Hematocrit: 28.1 L (10/17/2016 13:25:QS system process) MCV: 81 (10/17/2016 13:25:QS system process) Group Beta Strep: neg (08/22/2016 23:25:Aviva Hermosillo RN) Gonorrhea: Negative (08/22/2016 23:25:Elysia Luong RN) Chlamydia: Negative (08/22/2016 23:25:Elysia Luong RN) RPR/VDRL: Nonreactive (08/22/2016 23:25:Elysia Luong RN) HIV Results: Negative (08/22/2016 23:25:Elysia Luong RN) Hepatitis B: Negative (08/22/2016 23:25:Elysia Luong RN) Rubella: Immune (08/22/2016 23:25:Elysia Luong RN) Varicella: Non Susceptible (08/22/2016 23:25:Elysia Luong RN) OB/PREVIOUS HISTORY Current Procedures: Ultrasound (08/22/2016 23:25:Cierar Remy RN) History of Previous : No (08/22/2016 23:25:Cierra Remy RN) History of Gestational Diabetes: No (08/22/2016 23:25:Cierra Remy RN) History of PIH: No (08/22/2016 23:25:Cierra Remy RN) History of Incompetent Cervix: No (08/22/2016 23:25:Cierra Remy RN) History of Placenta Previa/Abrup: No (08/22/2016 23:25:Cierra Remy RN) History of Macrosomia: No (08/22/2016 23:25:Cierra Remy RN) History of IUGR: No (08/22/2016 23:25:Cierra Remy RN) History of Hemorrhage: No (08/22/2016 23:25:Cierra Remy RN) History of Loss/Stillborn: No (08/22/2016 23:25:Cierra Remy RN) History of : No (08/22/2016 23:25:Cierra Remy RN) History of D (Rh) Sensitization: No (08/22/2016 23:25:Cierra Remy RN) History Recurrent Loss/Stillborn: No (08/22/2016 23:25:Cierra Remy RN) History Depression/PP Depression: No (08/22/2016 23:25:Cierra Remy RN) History of Uterine Anomaly/ELOY: No (08/22/2016 23:25:Cierra Remy RN) History of Infertility: No (08/22/2016 23:25:Cierra Remy RN) History of ART Treatment: No (08/22/2016 23:25:Cierra Remy RN) History of ELOY: No (08/22/2016 23:25:Cierra Remy RN) Comments Obstetrical History: G1: 2015 Male G2: Current (08/22/2016 23:25:Cierra Remy RN) MEDICAL HISTORY Med Hx Diabetes: No (08/22/2016 23:25:Cierra Remy RN) Med Hx Hypertension: Yes (08/22/2016 23:25:Cierra Remy RN) Med Hx Heart Disease: No (08/22/2016 23:25:Cierra Remy RN) Med Hx Autoimmune Disorder: No (08/22/2016 23:25:Cierra Remy RN) Med Hx Kidney Disease/UTI: No (08/22/2016 23:25:Cierra Remy RN) Med Hx Neurologic/Epilepsy: No (08/22/2016 23:25:Cierra Remy RN) Med Hx Psychiatric Disorders: No (08/22/2016 23:25:Cierra Remy RN) Med Hx Hepatitis/Liver Disease: No (08/22/2016 23:25:Cierra Remy RN) Med Hx Varicosities/Phlebitis: No (08/22/2016 23:25:Cierra Remy RN) Med Hx Thyroid Dysfunction: No (08/22/2016 23:25:Cierra Remy RN) Med Hx Trauma/Violence: No (08/22/2016 23:25:Cierra Remy RN) Med Hx Blood Transfusion: No (08/22/2016 23:25:Cierra Remy RN) Med Hx Pulmonary (Asthma,TB): No (08/22/2016 23:25:Cierra Remy RN) Med Hx Breast: No (08/22/2016 23:25:Cierra Remy RN) Med Hx COIL CLEANER Surgery: No (08/22/2016 23:25:Cierra Remy RN) Med Hx Hospitalization/Surgery: Yes (08/22/2016 23:25:Cierra Remy RN) Med Hx Anesthetic Complications: No (08/22/2016 23:25:Cierra Remy RN) Med Hx Abnormal Pap Smear: No (08/22/2016 23:25:Cierra Remy RN) Other Medical Diseases: No (08/22/2016 23:25:Cierra Remy RN) Med Hx Significant Family Hx: No (08/22/2016 23:25:Cierra Remy RN) Details of Med/Surg Hx: Hospitalized with of first child (Annotations: Data stored by N on behalf of user) (08/22/2016 23:25:Lanny Grace RN) INFECTIOUS HISTORY Inf Hx Gonorrhea: No (08/22/2016 23:25:Cierra Remy RN) Inf Hx Chlamydia: No (08/22/2016 23:25:Cierra Remy RN) Inf Hx Syphilis: No (08/22/2016 23:25:Cierra Remy RN) Inf Hx HIV/AIDS: No (08/22/2016 23:25:Cierra Remy RN) Inf Hx Human Papilloma Virus: No (08/22/2016 23:25:Cierra Remy RN) Inf Hx Pt/Partner Genital Herpes: Yes (08/22/2016 23:25:Cierra Remy RN) Inf Hx Tuberculosis/Exposure: No (08/22/2016 23:25:Cierra Remy RN) Inf Hx Hepatitis B,C: No (08/22/2016 23:25:Cierra Remy RN) Inf Hx Rash or Viral Illness: No (08/22/2016 23:25:Cierra Remy RN) GENETIC HISTORY Gen Hx Age >=35 at DEMARCO: No (08/22/2016 23:25:Cierra Remy RN) Gen Hx Thalassemia: No (08/22/2016 23:25:Cierra Remy RN) Gen Hx Congenital Heart Defect: No (08/22/2016 23:25:Cierra Remy RN) Gen Hx Neural Tube Defect: No (08/22/2016 23:25:Cierra Remy RN) Gen Hx Down's Syndrome: No (08/22/2016 23:25:Cierra Remy RN) Gen Hx Cy-Sachs: No (08/22/2016 23:25:Cierra Remy RN) Gen Hx Domo: No (08/22/2016 23:25:Cierra Remy RN) Gen Hx Familial Dysautonomia: No (08/22/2016 23:25:Cierra Remy RN) Gen Hx Sickle Cell Disease/Trait: Yes (08/22/2016 23:25:Cierra Remy RN) Gen Hx Hemophilia/Blood Disorder: No (08/22/2016 23:25:Cierra Remy RN) Gen Hx Muscular Dystrophy: No (08/22/2016 23:25:Cierra Remy RN) Gen Hx Cystic Fibrosis: No (08/22/2016 23:25:Cierra Remy RN) Gen Hx Huntingtons Chorea: No (08/22/2016 23:25:Cierra Remy RN) Gen Hx Mental Retardation/Autism: No (08/22/2016 23:25:Cierra Remy RN) Gen Hx Tested for Fragile X: No (08/22/2016 23:25:Cierra Remy RN) Gen Hx Other Inher/Chromosomal: No (08/22/2016 23:25:Cierra Remy RN) Gen Hx Maternal Metabolic DO: No (08/22/2016 23:25:Cierra Remy RN) Gen Hx Pt Father or FOB Defect: No (08/22/2016 23:25:Cierra Remy RN) Gen Hx Other Genetic History: No (08/22/2016 23:25:Cierra Remy RN) Gen Hx Drugs/Meds since LMP: No (08/22/2016 23:25:Cierra Remy RN) Details of Genetic History: FOB with sickle cell trait (08/22/2016 23:25:Cierra Remy RN)
--- NOTE | 2016-10-18 08:00 | L&D Flow Sheet ---
LD Flowsheet Datetime Report Generated by CPN: 10/18/2016 08:00 Datetime: 10/18/2016 07:58 NBP Sys/Genny/Mean (mmHg): 111 (QS system process) : 80 (QS system process) : 92 (QS system process) Pulse: 105 (QS system process) Datetime: 10/18/2016 07:43 NBP Sys/Genny/Mean (mmHg): 109 (QS system process) : 71 (QS system process) : 85 (QS system process) Pulse: 91 (QS system process) Respirations: 18 (Selam Bellavance, RNC) Temperature Route: Oral (Selam Bellavance, RNC) Pain Scale: 1 (Selam Bellavance, RNC) Pain Presence: Constant (Selam Bellavance, RNC) Pain Type: sleeping (Selam Bellavance, RNC) Datetime: 10/18/2016 07:28 NBP Sys/Genny/Mean (mmHg): 108 (QS system process) : 75 (QS system process) : 87 (QS system process) Pulse: 96 (QS system process) Datetime: 10/18/2016 07:15 Communication: Report Given to @ Joseph RNC (Alexandrea Hsu RN) Communication Comments: care relinquished at this time (Alexandrea Hsu RN) Datetime: 10/18/2016 07:13 NBP Sys/Genny/Mean (mmHg): 106 (QS system process) : 65 (QS system process) : 80 (QS system process) Pulse: 109 (QS system process) Respirations: 16 (Selam Bellavance, RNC) Datetime: 10/18/2016 06:58 NBP Sys/Genny/Mean (mmHg): 106 (QS system process) : 67 (QS system process) : 81 (QS system process) Pulse: 100 (QS system process) Respirations: 16 (Alexandrea Shadi, RN) Temperature (F): 98.9 (Alexandrea Shadi, RN) Temperature (C): 37.2 (QS system process) Temperature Route: Oral (Alexandrea Shadi, RN) Datetime: 10/18/2016 06:43 NBP Sys/Genny/Mean (mmHg): 114 (QS system process) : 69 (QS system process) : 87 (QS system process) Pulse: 90 (QS system process) Datetime: 10/18/2016 06:28 NBP Sys/Genny/Mean (mmHg): 111 (QS system process) : 68 (QS system process) : 83 (QS system process) Pulse: 96 (QS system process) Datetime: 10/18/2016 06:13 NBP Sys/Genny/Mean (mmHg): 116 (QS system process) : 75 (QS system process) : 88 (QS system process) Pulse: 95 (QS system process) Datetime: 10/18/2016 05:58 NBP Sys/Genny/Mean (mmHg): 126 (QS system process) : 88 (QS system process) : 102 (QS system process) Pulse: 84 (QS system process) Datetime: 10/18/2016 05:45 Pulse: 76 (QS system process) SpO2 (%): 100 (QS system process) Datetime: 10/18/2016 05:43 NBP Sys/Genny/Mean (mmHg): 137 (QS system process) : 95 (QS system process) : 111 (QS system process) Pulse: 82 (QS system process) Datetime: 10/18/2016 05:40 Pulse: 80 (QS system process) SpO2 (%): 100 (QS system process) Datetime: 10/18/2016 05:35 Pulse: 79 (QS system process) SpO2 (%): 100 (QS system process) Datetime: 10/18/2016 05:30 Pulse: 77 (QS system process) SpO2 (%): 100 (QS system process) Datetime: 10/18/2016 05:28 NBP Sys/Genny/Mean (mmHg): 120 (QS system process) : 73 (QS system process) : 91 (QS system process) Pulse: 76 (QS system process) Datetime: 10/18/2016 05:25 Pulse: 76 (QS system process) SpO2 (%): 100 (QS system process) Datetime: 10/18/2016 05:20 Pulse: 82 (QS system process) SpO2 (%): 100 (QS system process) Datetime: 10/18/2016 05:15 Pulse: 84 (QS system process) SpO2 (%): 100 (QS system process) Datetime: 10/18/2016 05:10 Pulse: 86 (QS system process) SpO2 (%): 100 (QS system process) Datetime: 10/18/2016 05:05 Pulse: 93 (QS system process) SpO2 (%): 100 (QS system process) Datetime: 10/18/2016 05:00 Pulse: 76 (QS system process) SpO2 (%): 100 (QS system process) Datetime: 10/18/2016 04:57 NBP Sys/Genny/Mean (mmHg): 127 (QS system process) : 68 (QS system process) : 90 (QS system process) Pulse: 86 (QS system process) Datetime: 10/18/2016 04:55 Pulse: 87 (QS system process) SpO2 (%): 100 (QS system process) Datetime: 10/18/2016 04:50 Pulse: 82 (QS system process) SpO2 (%): 100 (QS system process) Datetime: 10/18/2016 04:45 Pulse: 101 (QS system process) SpO2 (%): 100 (QS system process) Datetime: 10/18/2016 04:40 Pulse: 90 (QS system process) SpO2 (%): 100 (QS system process) Datetime: 10/18/2016 04:35 Pulse: 87 (QS system process) SpO2 (%): 100 (QS system process) Datetime: 10/18/2016 04:30 Pulse: 86 (QS system process) SpO2 (%): 100 (QS system process) Datetime: 10/18/2016 04:21 Pulse: 83 (QS system process) SpO2 (%): 100 (QS system process) Datetime: 10/18/2016 04:20 Pain Presence: None/Denies (Alexandrea Shadi, RN) Datetime: 10/18/2016 04:17 NBP Sys/Genny/Mean (mmHg): 155 (QS system process) : 94 (QS system process) : 119 (QS system process) Pulse: 88 (QS system process) Datetime: 10/18/2016 04:16 NBP Sys/Genny/Mean (mmHg): 144 (QS system process) : 100 (QS system process) : 114 (QS system process) Pulse: 92 (QS system process) Pulse: 95 (QS system process) Respirations: 15 (Alexandrea Shadi, RN) SpO2 (%): 99 (QS system process) Datetime: 10/18/2016 04:15 Stage of : Recovery (Alexandrea Shadi, RN) Datetime: 10/18/2016 04:13 Communication Comments: Dr Geiger at bedside (Alexandrea Shadi, RN) Datetime: 10/18/2016 04:12 Stage 2 Comments: vaginal delivery viable male by RN, infant with spontaneous respirations and cry. (Alexandrea Shadi, RN) Datetime: 10/18/2016 04:10 Membrane Status: Ruptured (Alexandrea Hsu RN) Membranes Rupture Method: Spontaneous (Alexandrea Hsu RN) Amniotic Fluid Color: Light Meconium (Alexandrea Hsu RN) Amniotic Fluid Amount: Moderate (Alexandrea Hsu RN) Communication Comments: nursery called for light mec and impending delivery (Alexandrea Hsu RN) Communication Comments: Dr. Geiger notified of pt pushing and asked to come to room. (Lanny Grace RN) Datetime: 10/18/2016 04:08 Dilatation (cm): 10.0 (Alexandrea Hsu RN) Effacement (%): 100 (Alexandrea Hsu RN) Station: 1 (Alexandrea Hsu RN) Exam by: Rissa Hsu RN (Alexandrea Hsu RN) Membrane Status: Bulging (Alexandrea Hsu RN) Pushing: Involuntary Pushing (Alexandrea Hsu, SAEED) Datetime: 10/18/2016 04:05 Pulse: 110 (QS system process) SpO2 (%): 83 (QS system process) LaborFlag: Antepartum (QS system process) Datetime: 10/18/2016 04:04 Pulse: 111 (QS system process) SpO2 (%): 100 (QS system process) LaborFlag: Antepartum (QS system process) Datetime: 10/18/2016 04:00 Monitor Mode: External (Lanny Grace RN) Frequency (min): 3-4 (Lanny Grace RN) Quality: Moderate to Strong (Lanny Grace RN) Duration (sec): 50-80 (Lanny Grace RN) Pattern: Normal: <= 5 Contractions in 10 Minutes (Lanny Grace RN) Resting Tone (Palpate): Relaxed (Lanny Grace RN) Monitor Mode: External US (Lanny Grace RN) FHR Baseline Rate : 135 (Lanny Sanjay, RN) FHR Baseline Changes: No Baseline Change (Lanny Sanjay, RN) Variability: Moderate 6-25 bpm (Lanny Sanjay, RN) Accelerations: None (Lanny Grace, RN) Decelerations: Early (Lanny Grace, RN) Datetime: 10/18/2016 03:59 Patient Care Comments: pt sitting up for epidural procedure (Alexandrea Cisnerosl, RN) Anesthesia Plans: Epidural (lAexandrea Cisnerosl, RN) Epidural Positioning: Sitting (Alexandrea Shadi, RN) Datetime: 10/18/2016 03:55 Communication Comments: Dr. Geiger notified of pt's progress. (Lanny Rauschoon, RN) Datetime: 10/18/2016 03:54 I/O Interventions: Up to BR (Alexandrea Hsu RN) Procedure Verify: Correct Patient Identity; Correct Side and Site are Marked; Accurate Procedure Consent Form; Agreement on Procedure to be Done; Relevant Images and Results are Properly Labeled and Displayed; Addressed Need to Administer Antibiotics or Fluids for Irrigation; Safety Precautions Based on Patient History or Medication Use (Alexandrea Hus RN) Anesthesia Plans: Epidural (Alexandrea Hsu RN) Anesthesia Comments: Dr Crump called for epidural placement (Alexandrea Hsu RN) Datetime: 10/18/2016 03:51 Dilatation (cm): 8.0 (Lanny Grace RN) Effacement (%): 100 (Lanny Grace RN) Exam by: LANA Narayanan (Lanny Grace RN) Vaginal Bleeding: Normal Show (Lanny Grace RN) Cervix, Consistency: Soft (Lanny Grace RN) Vaginal Exam Comments: Could not ascertain station, due to bulging bag. (Lanny Grace RN) IV/Blood Work: IV Bolus Started (Lanny Grace RN) Procedure Verify: Correct Patient Identity; Correct Side and Site are Marked; Accurate Procedure Consent Form; Agreement on Procedure to be Done; Correct Patient Position; Relevant Images and Results are Properly Labeled and Displayed; Addressed Need to Administer Antibiotics or Fluids for Irrigation; Safety Precautions Based on Patient History or Medication Use (Lanny Grace RN) Anesthesia Comments: Pt desiring epidural, (Lanny Sanjay, RN) Datetime: 10/18/2016 03:49 Medication Comments: Cervidil removed. (Lanny Sanjay, RN) Datetime: 10/18/2016 03:30 Monitor Mode: External (Lanny Sanjay, RN) Frequency (min): 2-5 (Lanny Sanjay, RN) Quality: Moderate (Lanny Sanjay, RN) Duration (sec): 50-100 (Lanny Sanjay, RN) Resting Tone (Palpate): Relaxed (Lanny Sanjay, RN) Monitor Mode: External US (Lanny Sanjay, RN) FHR Baseline Rate : 125 (Lanny Sanjay, RN) FHR Baseline Changes: No Baseline Change (Lanny Sanjay, RN) Variability: Moderate 6-25 bpm (Lanny Sanjay, RN) Accelerations: None (Lanny Sanjay, RN) Decelerations: None (Lanny Sanjay, RN) Datetime: 10/18/2016 03:27 NBP Sys/Genny/Mean (mmHg): 107 (QS system process) : 67 (QS system process) : 80 (QS system process) Pulse: 82 (QS system process) LaborFlag: Antepartum (QS system process) Datetime: 10/18/2016 03:09 I/O Interventions: Up to BR (Lanny Sanjay, RN) Datetime: 10/18/2016 03:00 Monitor Mode: External (Lanny Sanjay, RN) Frequency (min): 2-5 (Lanny Sanjay, RN) Quality: Moderate (Lanny Sanjay, RN) Duration (sec): 60-120 (Lanny Sanjay, RN) Pattern: Normal: <= 5 Contractions in 10 Minutes (Lanny Sanjay, RN) Resting Tone (Palpate): Relaxed (Lanny Sanjay, RN) Monitor Mode: External US (Lanny Sanjay, RN) FHR Baseline Rate : 130 (Lanny Sanjay, RN) FHR Baseline Changes: No Baseline Change (Lanny Sanjay, RN) Variability: Moderate 6-25 bpm (Lanny Sanjay, RN) Accelerations: None (Lanny Sanjay, RN) Decelerations: None (Lanny Sanjay, RN) Datetime: 10/18/2016 02:56 NBP Sys/Genny/Mean (mmHg): 120 (QS system process) : 71 (QS system process) : 91 (QS system process) Pulse: 74 (QS system process) LaborFlag: Antepartum (QS system process) Datetime: 10/18/2016 02:30 Monitor Mode: External (Lanny Sanjay, RN) Frequency (min): 1-5 (Lanny Asnjay, RN) Quality: Mild/Moderate (Lanny Sanjay, RN) Duration (sec): 50-120 (Lanny Sanjay, RN) Resting Tone (Palpate): Relaxed (Lanny Sanjay, RN) Monitor Mode: External US (Lanny Sanjay, RN) FHR Baseline Rate : 120 (Lanny Sanjay, RN) FHR Baseline Changes: No Baseline Change (Lanny Sanjay, RN) Variability: Moderate 6-25 bpm (Lanny Sanjay, RN) Accelerations: 15X15 (Lanny Sanjay, RN) Decelerations: None (Lanny Sanjay, RN) Datetime: 10/18/2016 02:28 I/O Interventions: Up to BR (Lanny Sanjay, RN) Datetime: 10/18/2016 02:10 NBP Sys/Genny/Mean (mmHg): 118 (QS system process) : 69 (QS system process) : 88 (QS system process) Pulse: 82 (QS system process) LaborFlag: Antepartum (QS system process) Datetime: 10/18/2016 02:00 Monitor Mode: External (Lanny Sanjay, RN) Frequency (min): 1-5 (Lanny Sanjay, RN) Quality: Mild/Moderate (Lanny Sanjay, RN) Duration (sec): 40-100 (Lanny Sanjay, RN) Pattern: Normal: <= 5 Contractions in 10 Minutes (Lanny Sanjay, RN) Resting Tone (Palpate): Relaxed (Lanny Sanjay, RN) Monitor Mode: External US (Lanny Sanjay, RN) FHR Baseline Rate : 120 (Lanny Sanjay, RN) FHR Baseline Changes: No Baseline Change (Lanny Sanjay, RN) Variability: Moderate 6-25 bpm (Lanny Sanjay, RN) Accelerations: 15X15 (Lanny Sanjay, RN) Decelerations: None (Lanny Sanjay, RN) Datetime: 10/18/2016 01:41 NBP Sys/Genny/Mean (mmHg): 115 (QS system process) : 68 (QS system process) : 87 (QS system process) Pulse: 78 (QS system process) LaborFlag: Antepartum (QS system process) Datetime: 10/18/2016 01:30 Monitor Mode: External (Lanny Sanjay, RN) Frequency (min): 1-5 (Lanny Sanjay, RN) Quality: Mild/Moderate (Lanny Sanjay, RN) Duration (sec): 40-50 (Lanny Sanjay, RN) Pattern: Normal: <= 5 Contractions in 10 Minutes (Lanny Sanjay, RN) Resting Tone (Palpate): Relaxed (Lanny Sanjay, RN) Monitor Mode: External US (Lanny Sanjay, RN) FHR Baseline Rate : 130 (Lanny Sanjay, RN) FHR Baseline Changes: No Baseline Change (Lanny Sanjay, RN) Variability: Moderate 6-25 bpm (Lanny Sanjay, RN) Accelerations: 15X15 (Lanny Sanjay, RN) Decelerations: None (Lanny Sanjay, RN) Datetime: 10/18/2016 01:10 NBP Sys/Genny/Mean (mmHg): 110 (QS system process) : 64 (QS system process) : 81 (QS system process) Pulse: 86 (QS system process) LaborFlag: Antepartum (QS system process) Datetime: 10/18/2016 01:00 Monitor Mode: External (Lanny Sanjay, RN) Frequency (min): 1-7 (Lanny Sanjay, RN) Quality: Mild/Moderate (Lanny Sanjay, RN) Duration (sec): 60-120 (Lanny Sanjay, RN) Resting Tone (Palpate): Relaxed (Lanny Sanjay, RN) Monitor Mode: External US (Lanny Sanjay, RN) FHR Baseline Rate : 130 (Lanny Sanjay, RN) FHR Baseline Changes: No Baseline Change (Lanny Sanjay, RN) Variability: Moderate 6-25 bpm (Lanny Sanjay, RN) Accelerations: 15X15 (Lanny Sanjay, RN) Decelerations: None (Lnany Sanjay, RN) Datetime: 10/18/2016 00:44 Pain Scale: 0 (Lanny Grace RN) Pain Assessment Comments: Pt very "drunk". Assisted up to BR without incident. Pt denies feeling any u/c's (Lanny Grace RN) I/O Interventions: Up to BR (Lanny Grace RN) LaborFlag: Antepartum (QS system process) Datetime: 10/18/2016 00:40 NBP Sys/Genny/Mean (mmHg): 124 (QS system process) : 73 (QS system process) : 94 (QS system process) Pulse: 85 (QS system process) LaborFlag: Antepartum (QS system process) Datetime: 10/18/2016 00:30 Monitor Mode: External (Lanny Sanjay, RN) Frequency (min): 1-9 (Lanny Sanjay, RN) Quality: Moderate (Lanny Sanjay, RN) Duration (sec): 60-120 (Lanny Sanjay, RN) Pattern: Normal: <= 5 Contractions in 10 Minutes (Lanny Sanjay, RN) Monitor Mode: External US (Lanny Sanjay, RN) FHR Baseline Rate : 130 (Lanny Sanjay, RN) FHR Baseline Changes: No Baseline Change (Lanny Sanjay, RN) Variability: Moderate 6-25 bpm (Lanny Sanjay, RN) Accelerations: 15X15 (Lanny Sanjay, RN) Decelerations: None (Lanny Sanjay, RN) Datetime: 10/18/2016 00:10 NBP Sys/Genny/Mean (mmHg): 110 (QS system process) : 71 (QS system process) : 85 (QS system process) Pulse: 75 (QS system process) LaborFlag: Antepartum (QS system process) Datetime: 10/18/2016 00:00 Monitor Mode: External (Lanny Sanjay, RN) Frequency (min): 2-7 (Lanny Sanjay, RN) Quality: Moderate (Lanny Sanjay, RN) Duration (sec): 60-120 (Lanny Sanjay, RN) Resting Tone (Palpate): Relaxed (Lanny Sanjay, RN) Monitor Mode: External US (Lanny Sanjay, RN) FHR Baseline Rate : 130 (Lanny Sanjay, RN) FHR Baseline Changes: No Baseline Change (Lanny Sanjay, RN) Variability: Moderate 6-25 bpm (Lanny Sanjay, RN) Accelerations: 15X15 (Lanny Sanjay, RN) Decelerations: None (Lanny Sanjay, RN) Datetime: 10/17/2016 23:40 NBP Sys/Genny/Mean (mmHg): 107 (QS system process) : 63 (QS system process) : 79 (QS system process) Pulse: 75 (QS system process) Respirations: 18 (Lanny Grace RN) Temperature (F): 98.4 (Lanny Grace RN) Temperature (C): 36.9 (QS system process) Temperature Route: Oral (Lanny Grace RN) LaborFlag: Antepartum (QS system process) Datetime: 10/17/2016 23:39 Analgesics/Sedatives: Nubain (mg) @ 10 (Lanny Grace, SAEED) Antiemetics/Antacids: Phenergan IV (mg) @ 12.5 (Lanny Grace, RN) Datetime: 10/17/2016 23:30 Monitor Mode: External (Lanny Grace RN) Frequency (min): 4-9 (Lanny Grace RN) Quality: Moderate (Lanny Grace RN) Duration (sec): 50-90 (Lanny Grace RN) Pattern: Normal: <= 5 Contractions in 10 Minutes (Lanny Grace RN) Resting Tone (Palpate): Relaxed (Lanny Grace RN) Monitor Mode: External US (Lanny Grace RN) FHR Baseline Rate : 140 (Lanny Grace RN) FHR Baseline Changes: No Baseline Change (Lanny Grace RN) Variability: Moderate 6-25 bpm (Lanny Grace RN) Accelerations: 15X15 (Lanny Grace RN) Decelerations: None (Lanny Grace RN) Communication Comments: Informed Dr. Geiger of pt's dilation and request for pain meds. Orders received. (Lanny Grace RN) Datetime: 10/17/2016 23:26 Pain Scale: 4 (Lanny Grace RN) Dilatation (cm): 2.0 (Lanny Grace RN) Effacement (%): 80 (Lanny Grace RN) Station: -1 (Lanny Grace RN) Exam by: Ry Grace RN (Lanny Grace RN) Vaginal Exam Comments: Unsure of station due to pt being very tense. (Lanny Grace RN) LaborFlag: Antepartum (QS system process) Datetime: 10/17/2016 23:03 Contraction Comments: Pt moaning with u/c's. Asked if could have some pain med. Informed pt I would need to do SVE. States no to SVE. (Lanny Sanjay, RN) Comments: Baby has hiccoughs at present. (Lanny Sanjay, RN) Datetime: 10/17/2016 23:02 Monitor Interventions for UA: [place] Adjusted (Aviva Marlatt, RN) Datetime: 10/17/2016 23:00 Stage of : Antepartum (Lanny Grace RN) Monitor Mode: External (Lanny Grace RN) Quality: Mild/Moderate (Lanny Grace RN) Resting Tone (Palpate): Relaxed (Lanny Grace RN) Contraction Comments: u/c's have not been picking up. [place] adjusted. (Lanny Grace RN) Monitor Mode: Auscultation (Lanny Grace RN) FHR Baseline Rate : 135 (Lanny Grace RN) FHR Baseline Changes: No Baseline Change (Lanny Grace RN) Variability: Moderate 6-25 bpm (Lanny Grace, SAEED) Accelerations: 15X15 (Lanny Grace, SAEED) Decelerations: None (Lanny Grace RN) Datetime: 10/17/2016 22:59 Monitor Interventions for FHR: Ultrasound Adjusted (Aviva Hermosillo RN) Datetime: 10/17/2016 22:58 Communication: RN at Bedside; Report Given to Chi Grace RN (Aviva Hermosillo RN) Communication Comments: care relinguished (Aviva Marlatt, RN) Datetime: 10/17/2016 22:52 I/O Interventions: Up to BR (Aviva Marlatt, RN) Datetime: 10/17/2016 22:30 Monitor Mode: External (Aviva Marlatt, RN) Frequency (min): 0 (Aviva Marlatt, RN) Resting Tone (Palpate): Relaxed (Aviva Marlatt, RN) Monitor Mode: External US (Aviva Marlatt, RN) FHR Baseline Rate : 130 (Aviva Marlatt, RN) Variability: Moderate 6-25 bpm (Aviva Marlatt, RN) Accelerations: 15X15 (Aviva Marlatt, RN) Decelerations: None (Aviva Marlatt, RN) Datetime: 10/17/2016 22:00 Monitor Mode: External (Aviva Marlatt, RN) Frequency (min): 0 (Aviva Marlatt, RN) Resting Tone (Palpate): Relaxed (Aviva Marlatt, RN) Monitor Mode: External US (Aviva Marlatt, RN) FHR Baseline Rate : 140 (Aviva Marlatt, RN) Variability: Moderate 6-25 bpm (Aviva Marlatt, RN) Accelerations: 15X15 (Aviva Marlatt, RN) Decelerations: None (Aviva Marlatt, RN) Datetime: 10/17/2016 21:37 Monitor Interventions for FHR: Ultrasound Adjusted (Aviva Marlatt, RN) Patient Care Comments: patient resting (Aviva Marlatt, RN) Datetime: 10/17/2016 21:36 Patient Position/Activity: Left Lateral; Low Fowlers (Aviva Hermosillo, RN) Datetime: 10/17/2016 21:32 Monitor Interventions for FHR: Ultrasound Adjusted (Aviva Hermosillo, RN) Communication: RN at Bedside (Aviva Hermosillo, RN) Datetime: 10/17/2016 21:30 Monitor Mode: External; Palpation (Aviva Hermosillo, RN) Frequency (min): 1.5-8 (Aviva Hermosillo, RN) Quality: Mild/Moderate (Aviva Hermosillo, RN) Duration (sec): 70-140 (Aviva Hermosillo, RN) Resting Tone (Palpate): Relaxed (Aviva Hermosillo, RN) Monitor Mode: External US (Aviva Hermosillo, RN) FHR Baseline Changes: Unable to Determine (Aviva Hermosillo, RN) Variability: Moderate 6-25 bpm (Aviva Hermosillo, RN) Datetime: 10/17/2016 21:27 Patient Position/Activity: Right Lateral; Semi-Fowlers (Aviva Marlatt, RN) Datetime: 10/17/2016 21:23 I/O Interventions: Up to BR (Aviva Marlatt, RN) Datetime: 10/17/2016 21:03 Monitor Interventions for FHR: Ultrasound Adjusted (Aviva Marlatt, RN) Datetime: 10/17/2016 21:00 Monitor Mode: External (Aviva Marlatt, RN) Frequency (min): 0 (Aviva Marlatt, RN) Resting Tone (Palpate): Relaxed (Aviva Marlatt, RN) Monitor Mode: External US (Aviva Marlatt, RN) FHR Baseline Rate : 140 (Aviva Marlatt, RN) Variability: Moderate 6-25 bpm (Aviva Marlatt, RN) Decelerations: None (Aviva Marlatt, RN) Datetime: 10/17/2016 20:47 I/O Interventions: Up to BR (Aviva Marlatt, RN) Datetime: 10/17/2016 20:30 Monitor Mode: External; Palpation (Aviva Marlatt, RN) Frequency (min): 0 (Aviva Marlatt, RN) Resting Tone (Palpate): Relaxed (Aviva Marlatt, RN) Monitor Mode: External US (Aviva Marlatt, RN) FHR Baseline Changes: Unable to Determine (Aviva Marlatt, RN) Variability: Moderate 6-25 bpm (Aviva Marlatt, RN) Datetime: 10/17/2016 20:19 I/O Interventions: Up to BR (Aviva Marlatt, RN) Datetime: 10/17/2016 20:10 Temperature (F): 98.4 (Aviva Marlatt, RN) Temperature (C): 36.9 (QS system process) Datetime: 10/17/2016 20:07 Analgesics/Sedatives: Ambien (mg) @ 10 (Aviva Hermosillo RN) Datetime: 10/17/2016 20:00 Monitor Mode: External (Aviva Hermosillo RN) Frequency (min): irreg (Aviva Hermosillo RN) Resting Tone (Palpate): Relaxed (Aviva Hermosillo RN) Monitor Mode: External US (Aviva Hermosillo RN) FHR Baseline Rate : 125 (Aviva Hermosillo RN) Variability: Moderate 6-25 bpm (Aviva Hermosillo RN) Accelerations: 10X10 (Aviva Hermosillo RN) Decelerations: None (Aviva Hermosillo RN)
--- NOTE | 2016-10-18 08:19 | Admission Physical ---
Datetime Report Generated by CPN: 10/18/2016 08:19 CURRENT ADMISSION Chief Complaint: Signs/Symptoms Gestational HTN Indication for Induction: IUGR Admit Plan: Admit to Unit; Initiate Labor Induction Protocol ALLERGIES Medication Allergies: No Medication Allergies: No Known Allergies (10/17/2016) Latex: No Latex Allergies Food Allergies: None Environmental Allergies: None OBSTETRICAL HISTORY EDC: 10/18/2016 00:00 : 2 Para: 1 Term: 1 : 0 SAB: 0 IAB: 0 Ectopic: 0 Livin Cesareans: 0 VBACs: 0 Multiple Births: 0 Gestational Diabetes: No Rh Sensitization: No Incompetent Cervix: No ELOY: No Infertility: No ART Treatment: No Uterine Anomaly: No IUGR: No Hx Previous C/S: No Macrosomia: No Hx Loss/Stillborn: No PIH: No Hx : No Placenta Previa/Abruption: No Depression/PP Depression: No PTL/PROM: No Post Hemorrhage: No Current Procedures: Ultrasound Obstetrical History Comments: G1: 2014 Male G2: Current SEE RECORDS Alcohol: No Marijuana : No Cocaine: No Other Illicit Drugs: No Cigarettes: Never Smoker. [id number] MEDICAL HISTORY Diabetes: No Blood Transfusion: No Pulmonary Disease (Asthma, TB): No Breast Disease: No Hypertension: Yes [employer] Surgery: No Heart Disease: No Hosp/Surgery: Yes Autoimmune Disorder: No Anesthetic Complications: No Kidney Disease: No Abnormal Pap Smear: No Neuro/Epilepsy: No Psychiatric Disorders: No Other Medical Diseases: No Hepatitis/Liver Disease: No Significant Family History: No Varicosities/Phlebitis: No Trauma/Violence : No Thyroid Dysfunction: No Medical History Comments: Hospitalized with of first child (Annotations: Data stored by [facility] on behalf of user) INFECTIOUS HISTORY Gonorrhea: No Genital Herpes: Yes Chlamydia: No Tuberculosis: No Syphilis: No Hepatitis: No HIV/AIDS Exposure: No Rash or Viral Illness: No HPV: No PHYSICAL EXAM General: Normal HEENT: Normal Neurologic: Normal Thyroid: Deferred Heart: Normal Lungs: Normal Breast: Deferred Back: Normal Abdomen: Normal Genitourinary Exam: Normal Extremities: Normal DTRs: Normal Pelvic Type: Adequate Physical Exam Comments: Gravid Vital Signs: Reviewed; Within Normal Limits VAGINAL EXAM Dilatation: 1 Effacement: 40 Station: -3 MEMBRANES Membranes: Intact FETUS A EGA: 39.6 Monitoring: External US FHR- Baseline: 135 Accelerations: Absent Admit Comment: IOL for 3 wk lag in AC GBS neg Proven for 7lbs 15oz PLANS FOR LABOR AND DELIVERY Labor and Delivery: None Pain Management: Epidural Feeding Preference: Both Benefit of Breast Feed Discussed: Yes Circumcision: Yes INFORMED CONSENT Assignment: Tray Geiger MD Signature: with User ID: Dominic : with User ID: Dominic : I personally evaluated and examined the patient in conjunction with the MLP and agree with the assessment, treatment plan and disposition.
[2016-10-18] MEDS: ACETAMINOPHEN WITH CODEINE #3 TABLET PO PRN ×3 (09:19→23:28)
[2016-10-18] MEDS: SENNOSIDES/DOCUSATE 8.6-50 MG 1 EACH TABLET PO SCH (09:20)
[2016-10-18] MEDS: DOCUSATE SODIUM 100 MG CAPSULE PO SCH ×2 (09:20→17:29)
[2016-10-18] MEDS: PRENATAL VITAMIN W-O CA NO5/FE FUMARATE/FA CAPSULE PO SCH (09:21)
[2016-10-18] MEDS: FAMOTIDINE 20 MG TABLET PO SCH ×2 (09:21→21:28)
[2016-10-18] MEDS: FERROUS SULFATE 325 MG TABLET PO SCH ×2 (09:26→17:29)
[2016-10-18] MEDS: IBUPROFEN 800 MG TABLET PO SCH ×2 (14:00→21:25)
--- NOTE | 2016-10-18 19:01 | L&D Flow Sheet ---
LD Flowsheet Datetime Report Generated by CPN: 10/18/2016 19:00 Datetime: 10/18/2016 07:58 NBP Sys/Genny/Mean (mmHg): 111 (QS system process) : 80 (QS system process) : 92 (QS system process) Pulse: 105 (QS system process) Datetime: 10/18/2016 07:43 NBP Sys/Genny/Mean (mmHg): 109 (QS system process) : 71 (QS system process) : 85 (QS system process) Pulse: 91 (QS system process) Respirations: 18 (Selam Bellavance, RNC) Temperature Route: Oral (Selam Bellavance, RNC) Pain Scale: 1 (Eslam Bellavance, RNC) Pain Presence: Constant (Selam Bellavance, RNC) Pain Type: sleeping (Selam Bellavance, RNC) Datetime: 10/18/2016 07:28 NBP Sys/Genny/Mean (mmHg): 108 (QS system process) : 75 (QS system process) : 87 (QS system process) Pulse: 96 (QS system process) Datetime: 10/18/2016 07:15 Communication: Report Given to @ Joseph RNC (Alexandrea Hsu RN) Communication Comments: care relinquished at this time (Alexandrea Hsu RN) Datetime: 10/18/2016 07:13 NBP Sys/Genny/Mean (mmHg): 106 (QS system process) : 65 (QS system process) : 80 (QS system process) Pulse: 109 (QS system process) Respirations: 16 (LANA Doran)
[2016-10-19] MEDS: IBUPROFEN 800 MG TABLET PO SCH ×3 (06:07→21:08)
--- NOTE | 2016-10-19 06:16 | L&D Current Admission ---
Current Admit Datetime Report Generated by CPN: 10/19/2016 06:00 ADMISSION INFORMATION Current Admit Date/Time: 10/17/2016 12:31 (10/10/2016 19:24:Aviva Hermosillo RN) Reason for Admission: Induction of Labor (10/10/2016 19:24:Aviva Hermosillo RN) Chief Complaint: Scheduled Induction of Labor (10/10/2016 19:24:Aviva Hermosillo RN) EGA per Dates: 39.6 (10/10/2016 19:24:QS system process) Method of Arrival: Ambulatory (10/10/2016 19:24:Aviva Hermosillo RN) Admitted From: [facility] (10/10/2016 19:24:Aviva Hermosillo RN) Reason for Induction: Intrauterine Growth Retardation; Other (10/10/2016 19:24:Aviva Hermosillo RN) Reason for Induction- Other: 3 week growth lag (10/10/2016 19:24:Aviva Hermsoillo RN) Records Available: Yes (10/10/2016 19:24:Aviva Hermosillo RN) General Admission Information: Reviewed; Updated; Confirmed (10/10/2016 19:24:Aviva Hermosillo RN) General Admission Reviewed By: Chema Hermosillo RN (10/10/2016 19:24:Aviva Hermosillo RN) LEARNING ASSESSMENT Knowledge Level: Understands L_D Process (10/10/2016 19:24:Aviva Hermosillo RN) Barriers to Learning: None (10/10/2016 19:24:Aviva Hermosillo RN) Learning Readiness: Motivated (10/10/2016 19:24:Aviva Hermosillo RN) Learns Best By: 1 to 1 Instruction (10/10/2016 19:24:Aviva Hermosillo RN) Learning Needs: Labor and Delivery Process; Pain Management; Symptoms to Report; Treatment Plan; Medication; Community Resources (10/10/2016 19:24:Aviva Hermosillo RN) DOMESTIC VIOLANCE SCREENING Dom Viol Threatened/Hurt: No (10/10/2016 19:24:Aviva Hermosillo RN) Hx of Abuse/Neglect past 2yrs: No (10/10/2016 19:24:Aviva Hermosillo RN) Feel Unsafe Going Home: No (10/10/2016 19:24:Aviva Hermosillo RN) Addt'l Observ Indicating Abuse: No (10/10/2016 19:24:Aviva Hermosillo RN) Reason Unable to Complete Screen: N/A, Screen Completed (10/10/2016 19:24:Aviva Hermosillo RN) Considered Personal Harm/Suicide: No (10/10/2016 19:24:Aviva Hermosillo RN) NUTRITIONAL/FUNCTIONAL SCREENING Problem with Appetite >5 Days: No (10/10/2016 19:24:Aviva Hermosillo RN) Chew/Swallow Difficulties: No (10/10/2016 19:24:Aviva Hermosillo RN) Inappropriate Wt Gain/Loss: No (10/10/2016 19:24:Aviva Hermosillo RN) Presence Skin Breakdown/Ulcer: No (10/10/2016 19:24:Aviva Hermosillo RN) Special Diet: No (10/10/2016 19:24:Aviva Hermosillo RN) Pt Requests Meat Carrier Visit: No (10/10/2016 19:24:Aviva Hermosillo RN) Hx of Any of the Following?: N/A (10/10/2016 19:24:Aviva Hermosillo RN) New Diagnosis of: N/A (10/10/2016 19:24:Aviva Hermosillo RN) Requires Assist w/Ambulation: No (10/10/2016 19:24:Aviva Hermosillo RN) Uses Assist Device to Ambulate: No (10/10/2016 19:24:Aviva Hermosillo RN) Pt Requires Help w/ADL's: No (10/10/2016 19:24:Aviva Hermosillo RN)
--- NOTE | 2016-10-19 06:16 | L&D General Admission ---
General Admit Datetime Report Generated by CPN: 10/19/2016 06:00 INFORMATION Patient Age: 21 (08/22/2016 22:36:QS system process) EDC: 10/18/2016 00:00 (08/22/2016 23:25:Aviva Hermosillo RN) : 2 (08/22/2016 23:25:Cierra Remy RN) Para: 1 (10/14/2016 18:43:Donna Staples RN) Term: 1 (08/22/2016 23:25:Cierra Remy RN) : 0 (08/22/2016 23:25:Cierra Remy RN) Spontaneous Abortions: 0 (08/22/2016 23:25:Cierra Remy RN) Induced Abortions: 0 (08/22/2016 23:25:Cierra Remy RN) Livin (08/22/2016 23:25:Barbie Devine RN) Cesareans: 0 (08/22/2016 23:25:Cierra Remy RN) VBACs: 0 (08/22/2016 23:25:Cierra Remy RN) Ectopic: 0 (08/22/2016 23:25:Cierra Remy RN) Multiple Births: 0 (08/22/2016 23:25:Cierra Remy RN) Baby, Number in Womb: 1 (10/14/2016 18:43:Donna Staples RN) CARE Primary Emergency Doctor: Other-Annotate (08/22/2016 23:25:Cierra Remy RN) Emergency Doctor Other: [facility] today (08/22/2016 23:25:Aviva Hermosillo RN) Adequate Care: No (08/22/2016 23:25:Cierra Remy RN) Height (in): 60 (08/23/2016 00:53:QS system process) ALLERGIES Medication Allergy: No (08/22/2016 23:25:Cierra Remy RN) Medication Allergies: No Known Allergies (10/17/2016) (10/17/2016 14:40:QS system process) Latex Allergy: No Latex Allergies (08/22/2016 23:25:Cierra Remy RN) Food Allergies: None (08/22/2016 23:25:Cierra Remy RN) Environmental Allergies: None (08/22/2016 23:25:Cierra Remy RN) COMMUNICATION Primary Language: Chadian (08/22/2016 23:25:Cierra Remy RN) Medical Tx Preferred Language: Chadian (08/22/2016 23:25:Cierra Remy RN) Communication Barrier(s): None (08/22/2016 23:25:Cierra Remy RN) DEMOGRAPHICS Address: [address] [place] [id number] (08/22/2016 22:40:QS system process) Zipcode: [address] (08/22/2016 22:36:QS system process) Home (09/25/2016 18:27:QS system process) Work (09/25/2016 18:27:QS system process) SSN: [id number] (08/22/2016 22:36:QS system process) Next of Kin Name: IVETTE MASSEY (10/14/2016 18:05:QS system process) Next of Kin (10/14/2016 18:05:QS system process) Next of Kin Relationship: SPO (10/14/2016 18:05:QS system process) Date of : 1995 (08/22/2016 22:36:QS system process) Marital Status: (08/22/2016 22:40:QS system process) Sex: Female (08/22/2016 22:36:QS system process) Race: (08/22/2016 22:40:QS system process) Ethnicity: Non- or (08/22/2016 22:40:QS system process) Church: None (08/22/2016 22:40:QS system process) DRUG AND ALCOHOL USE Alcohol: No (08/22/2016 23:25:Cierra Remy RN) Cigarettes: Never Smoker. [id number] (08/22/2016 23:25:Cierra Remy RN) Marijuana: No (08/22/2016 23:25:Cierra Remy RN) Cocaine: No (08/22/2016 23:25:Cierra Remy RN) Other Illicit Drugs: No (08/22/2016 23:25:Cierra Remy RN) VACCINE HISTORY Influenza Vaccine: No (08/22/2016 23:25:Cierra Remy RN) Pneumococcal Vaccine: No (08/22/2016 23:25:Cierra Remy RN) Tetanus Vaccine: No (08/22/2016 23:25:Cierra Remy RN) Tdap Vaccine: No (08/22/2016 23:25:Cierra Remy RN) Hepatitis B Vaccine: Yes (08/22/2016 23:25:Cierra Remy RN) Cable Technician: Dr. Lopez (08/22/2016 23:25:Aviva Hermosillo RN) Feeding Preference: Both (08/22/2016 23:25:Franci Maguire RN) Benefit of Breast Feed Discussed: Yes (08/22/2016 23:25:Franci Maguire RN) Circumcision: Yes (08/22/2016 23:25:Franci Maguire RN) Classes Attended: No (08/22/2016 23:25:Franci Maguire RN) Tubal Ligation: No (08/22/2016 23:25:Cierra Remy RN) Tubal Authorization Signed: N/A (08/22/2016 23:25:Cierra Remy RN) Consent: N/A (08/22/2016 23:25:Cierra Remy RN) Consent Signed: N/A (08/22/2016 23:25:Cierra Remy RN) Pain Management Plans: Epidural (08/22/2016 23:25:Franci Maguire, RN) Plans for Labor and Delivery: None (08/22/2016 23:25:Franci Maguire, RN) Support Person: Svitlana Wagner (08/22/2016 23:25:Aviva Hermosillo RN) Support Person Relationship: Friend (08/22/2016 23:25:Aviva Hermosillo, SAEED) Other Relationship: Noel Massey - in [place] (08/22/2016 23:25:Aviva Hermosillo, SAEED) Cultural/Spritual Practice: No (08/22/2016 23:25:Cierra Remy RN) Spir/Cult Dietary Needs: No (08/22/2016 23:25:Cierra Remy RN) LIVING SITUATION/DISCHARGE PLAN Living Arrangements: House (08/22/2016 23:25:Cierra Remy RN) Adequate Access to:: Electric; Heat; Refrigeration; Plumbing/Running water; Phone; Transportation (08/22/2016 23:25:Cierra Remy RN) WIC Program: No (08/22/2016 23:25:Cierra Remy RN) Discharge Negative Turner Apprentice Person: Svitlana Bernard (08/22/2016 23:25:Aviva Hermosillo RN) Currently Using Commun Resources: Yes (08/22/2016 23:25:Cierra Remy RN) Specify Current Resource Used: EBT (08/22/2016 23:25:Cierra Remy RN) Outside Agency/Supervisor Title: No (08/22/2016 23:25:Cierra Remy RN) Car Seat for Discharge: Yes (08/22/2016 23:25:Franci Maguire RN) Adoption Requested: No (08/22/2016 23:25:Cierra Remy RN) Pt Contact w/infant Post : N/A (08/22/2016 23:25:Cierra Remy RN) LABS Blood Type: O Positive (08/22/2016 23:25:Elysia Luong RN) Antibody Screen: Negative (08/22/2016 23:25:Elysia Luong RN) Rho(G) this : Not Applicable (08/22/2016 23:25:Elysia Luong RN) Hemoglobin: 9.4 L (10/17/2016 13:25:QS system process) Hematocrit: 28.1 L (10/17/2016 13:25:QS system process) MCV: 81 (10/17/2016 13:25:QS system process) Group Beta Strep: neg (08/22/2016 23:25:Aviva Hermosillo RN) Gonorrhea: Negative (08/22/2016 23:25:Elysia Luong RN) Chlamydia: Negative (08/22/2016 23:25:Elysia Luong RN) RPR/VDRL: Nonreactive (08/22/2016 23:25:Elysia Luong RN) HIV Results: Negative (08/22/2016 23:25:Elysia Luong RN) Hepatitis B: Negative (08/22/2016 23:25:Elysia Luong RN) Rubella: Immune (08/22/2016 23:25:Elysia Luong RN) Varicella: Non Susceptible (08/22/2016 23:25:Elysia Luong RN) OB/PREVIOUS HISTORY Current Procedures: Ultrasound (08/22/2016 23:25:Cierra Remy RN) History of Previous : No (08/22/2016 23:25:Cierra Remy RN) History of Gestational Diabetes: No (08/22/2016 23:25:Cierra Remy RN) History of PIH: No (08/22/2016 23:25:Cierra Remy RN) History of Incompetent Cervix: No (08/22/2016 23:25:Cierra Remy RN) History of Placenta Previa/Abrup: No (08/22/2016 23:25:Cierra Remy RN) History of Macrosomia: No (08/22/2016 23:25:Cierra Remy RN) History of IUGR: No (08/22/2016 23:25:Cierra Remy RN) History of Hemorrhage: No (08/22/2016 23:25:Cierra Remy RN) History of Loss/Stillborn: No (08/22/2016 23:25:Cierra Remy RN) History of : No (08/22/2016 23:25:Cierra Remy RN) History of D (Rh) Sensitization: No (08/22/2016 23:25:Cierra Remy RN) History Recurrent Loss/Stillborn: No (08/22/2016 23:25:Cierra Remy RN) History Depression/PP Depression: No (08/22/2016 23:25:Cierra Remy RN) History of Uterine Anomaly/ELOY: No (08/22/2016 23:25:Cierra Remy RN) History of Infertility: No (08/22/2016 23:25:Cierra Remy RN) History of ART Treatment: No (08/22/2016 23:25:Cierra Remy RN) History of ELOY: No (08/22/2016 23:25:Cierra Remy RN) Comments Obstetrical History: G1: 2015 Male G2: Current (08/22/2016 23:25:Cierra Remy RN) MEDICAL HISTORY Med Hx Diabetes: No (08/22/2016 23:25:Cierra Remy RN) Med Hx Hypertension: Yes (08/22/2016 23:25:Cierra Remy RN) Med Hx Heart Disease: No (08/22/2016 23:25:Cierra eRmy RN) Med Hx Autoimmune Disorder: No (08/22/2016 23:25:Cierra Remy RN) Med Hx Kidney Disease/UTI: No (08/22/2016 23:25:Cierra Remy RN) Med Hx Neurologic/Epilepsy: No (08/22/2016 23:25:Cierra Remy RN) Med Hx Psychiatric Disorders: No (08/22/2016 23:25:Cierra Remy RN) Med Hx Hepatitis/Liver Disease: No (08/22/2016 23:25:Cierra Remy RN) Med Hx Varicosities/Phlebitis: No (08/22/2016 23:25:Cierra Remy RN) Med Hx Thyroid Dysfunction: No (08/22/2016 23:25:Cierra Remy RN) Med Hx Trauma/Violence: No (08/22/2016 23:25:Cierra Remy RN) Med Hx Blood Transfusion: No (08/22/2016 23:25:Cierra Remy RN) Med Hx Pulmonary (Asthma,TB): No (08/22/2016 23:25:Cierra Remy RN) Med Hx Breast: No (08/22/2016 23:25:Cierra Remy RN) Med Hx LIBRARY PAGE Surgery: No (08/22/2016 23:25:Cierra Remy RN) Med Hx Hospitalization/Surgery: Yes (08/22/2016 23:25:Cierra Remy RN) Med Hx Anesthetic Complications: No (08/22/2016 23:25:Cierra Remy RN) Med Hx Abnormal Pap Smear: No (08/22/2016 23:25:Cierra Remy RN) Other Medical Diseases: No (08/22/2016 23:25:Cierra Remy RN) Med Hx Significant Family Hx: No (08/22/2016 23:25:Cierra Remy RN) Details of Med/Surg Hx: Hospitalized with of first child (Annotations: Data stored by N on behalf of user) (08/22/2016 23:25:Lanny Grace RN) INFECTIOUS HISTORY Inf Hx Gonorrhea: No (08/22/2016 23:25:Cierra Remy RN) Inf Hx Chlamydia: No (08/22/2016 23:25:Cierra Remy RN) Inf Hx Syphilis: No (08/22/2016 23:25:Cierra Remy RN) Inf Hx HIV/AIDS: No (08/22/2016 23:25:Cierra Remy RN) Inf Hx Human Papilloma Virus: No (08/22/2016 23:25:Cierra Remy RN) Inf Hx Pt/Partner Genital Herpes: Yes (08/22/2016 23:25:Cierra Remy RN) Inf Hx Tuberculosis/Exposure: No (08/22/2016 23:25:Cierra Remy RN) Inf Hx Hepatitis B,C: No (08/22/2016 23:25:Cierra Remy RN) Inf Hx Rash or Viral Illness: No (08/22/2016 23:25:Cierra Remy RN) GENETIC HISTORY Gen Hx Age >=35 at DEMARCO: No (08/22/2016 23:25:Cierra Remy RN) Gen Hx Thalassemia: No (08/22/2016 23:25:Cierra Remy RN) Gen Hx Congenital Heart Defect: No (08/22/2016 23:25:Cierra Remy RN) Gen Hx Neural Tube Defect: No (08/22/2016 23:25:Cierra Remy RN) Gen Hx Down's Syndrome: No (08/22/2016 23:25:Cierra Remy RN) Gen Hx Cy-Sachs: No (08/22/2016 23:25:Cierra Remy RN) Gen Hx Domo: No (08/22/2016 23:25:Cierra Remy RN) Gen Hx Familial Dysautonomia: No (08/22/2016 23:25:Cierra Remy RN) Gen Hx Sickle Cell Disease/Trait: Yes (08/22/2016 23:25:Cierra Remy RN) Gen Hx Hemophilia/Blood Disorder: No (08/22/2016 23:25:Cierra Remy RN) Gen Hx Muscular Dystrophy: No (08/22/2016 23:25:Cierra Remy RN) Gen Hx Cystic Fibrosis: No (08/22/2016 23:25:Cierra Remy RN) Gen Hx Huntingtons Chorea: No (08/22/2016 23:25:Cierra Remy RN) Gen Hx Mental Retardation/Autism: No (08/22/2016 23:25:Cierra Remy RN) Gen Hx Tested for Fragile X: No (08/22/2016 23:25:Cierra Remy RN) Gen Hx Other Inher/Chromosomal: No (08/22/2016 23:25:Cierra Remy RN) Gen Hx Maternal Metabolic DO: No (08/22/2016 23:25:Cierra Remy RN) Gen Hx Pt Father or FOB Defect: No (08/22/2016 23:25:Cierra Remy RN) Gen Hx Other Genetic History: No (08/22/2016 23:25:Cierra Remy RN) Gen Hx Drugs/Meds since LMP: No (08/22/2016 23:25:Cierra Remy RN) Details of Genetic History: FOB with sickle cell trait (08/22/2016 23:25:Cierra Remy RN)
--- NOTE | 2016-10-19 06:29 | L&D Care Plan ---
LD CARE PLANS Datetime Report Generated by CPDiogo: 10/19/2016 06:15 Datetime: 10/17/2016 12:38 State: Risk For (Aviva Hermosillo RN) Related To: Labor and Delivery Process; Complication(s) of ; Disease Process; Treatment and Procedures; Post (Aviva Hermosillo RN) Goal(s): Patients Pain will be Assessed and Managed; Patient will Verbalize Adequate Relief of Pain or the Ability to [place] with Current Pain (Aviva Hermosillo RN) Interventions: Assess Pain Severity on Scale of 0 (None) to 5 (Severe); Assess Type, Location and Intensity of Pain Each Time Client Reports Discomfort and Notify Provider if Unusal Pain Develops; Encourage Proper Breathing and Relaxation Techniques; Offer Alternatives Such as Repositioning, Calm Environment, Massages, Diversional Activities, Ice Pack, Splinting, and Ambulation; Administer Analgesics as Ordered; Assist with Epidural Placement as Appropriate; Evaluate Therapeutic Effectiveness of Medication and Treatments (Aviva Hermosillo RN) Outcome: Patient will Report Absence or Relief of Pain Consistent with Established Pain Goal (Aviva Hermosillo RN) Status: Ongoing (Aviva Hermosillo RN) Outcome: Patient will have a Decrease in Signs and Symptoms of Discomfort (Aviva Hermosillo RN) Status: Ongoing (Aviva Hermosillo RN) Outcome: Pain will be Controlled During Procedures (Aviva Hermosillo RN) Status: Ongoing (Aviva Hermosillo RN) State: Risk For (Aviva Hermosillo RN) Related To: Labor and Delivery Process; Surgical Procedures; Treatment and Procedures; Impending Alterations in Family Dynamics; Feeding and Infant Care; Community Resources and Available Support Mechanisms (Aviva Hermosillo RN) Goal(s): Patient will Accurately Verbalize Understanding of Plan of Care and Treatment; Patient and Family will Accurately Verbalize Understanding of the Disease Process (Aviva Hermosillo RN) Interventions: Assess Motivation and Willingness of Patient/Family to Learn; Assess Preferred Learning Mode: One to One Instruction, Reading, Videos, Group Discussion or Demonstration; Assess Barriers to Learning: Pain, Emotional State, Language Barrier, Cognitive Impairment, Visual or Hearing Deficits; Assess Patient and Family Knowledge of Disease Process, Medications and Treatment; Discuss Therapy and/or Treatment Options, Describe Rationale Behind Management, Therapy and Treatment Recommendations; Instruct Patient and Family on Signs and Symptoms to Report; Instruct Patient and Family on Medication Effects and Side Effects; Provide Appropriate and Timely Education Using Multiple Techniques; Provide Patient and Family with Support Group Information and Resources; Give Clear and Thorough Explanations and Demonstrations (Aviva Hermosillo RN) Outcome: Patient and Family will Verbalize Understanding of Condition, Treatment and Signs and Symptoms to Report (Aviva Hermosillo RN) Outcome: Patient will Identify Perceived Learning Needs and Express Motivation to Learn (Aviva Hermosillo RN) Outcome: Patient will Verbalize Understanding of Desired Content, and/or Performs Desired Skill Prior to Discharge (Aviva Hermosillo RN) State: Risk For (Aviva Hermosillo RN) Related To: Prolonged Labor or Induction; Premature/Prolonged Rupture of Membranes; Invasive Procedures; Altered Tissue Integrity (Aviva Hermosillo RN) Goal(s): The Patient will be Free of Infection, Vital Signs Stable and Lab Work within Normal Parameters (Aviva Hermosillo RN) Interventions: Instruct and Reinforce Proper Handwashing, Hygiene, and Care Techniques to Patient and Family; Monitor Vital Signs; Monitor Patient for the Following Signs of Infection: Fever, Abdominal Tenderness, Unusual Discharge; Monitor Aminiotic Fluid, Urine and Lochia for Color and Odor; Observe Wounds, Incisions and Invasive Line Sites for Redness, Drainage and Edema; Assess IV Sites per Hospital Policy; Monitor Lab and Test Results and Notify Provider of Abnormal Findings; Assess Nutritional Status and Promote Good Nutrition (Aviva Hermosillo RN) Outcome: Patient will Remain Free of Infection (Aviva Hermosillo RN) Outcome: Infection will be Recognized Early to Allow for Prompt Treatment (Aviva Hermosillo RN) Outcome: Patient will have Vital Signs Within Expected Range (Aviva Hermosillo RN) State: Risk For (Aviva Hermosillo RN) Related To: Labor and Delivery Process; Anesthesia; Risk to Status; Uteroplacental Perfusion; Decreased Mobility; Hemorrhage, Placenta Previa and or Placental Abruption; Uterine Rupture (Aviva Hermosillo RN) Goal(s): Patient will Remain Free from Injury (Aviva Hermosillo RN) Interventions: Monitoring as per Hospital Protocol; Assess Neurological Status; Perform Risk Assessment of Patients with Induction and ; Perform Fall Risk Assessment and Prevention per Hospital Protocol; Perform DVT Risk Assessment and Prophylaxis per Hospital Protocol; Ensure that Oxygen, Suction, and Resuscitation Medications and Equipment are Readily Available; Confirm Patient ID Prior to Procedure(s) and Medication Administration per Hospital Policy (Aviva Hermosillo RN) Outcome: Successful Fall Risk Prevention (Aviva Hermosillo RN) Status: Ongoing (Aviva Hermosillo RN) Outcome: Patient will Deliver without Adverse Sequela (Aviva Hermosillo RN) Status: Ongoing (Aviva Hermosillo RN) Outcome: Patient's Neurological Status will Remain Stable (Aviva Hermosillo RN) Status: Ongoing (Aviva Hermosillo RN) State: Risk For (Aviva Hermosillo RN) Related To: Vaginal Delivery; Surgical Procedures; Prolonged Bedrest; Altered Tissue Integrity; Invasive Procedures (Aviva Hermosillo RN) Goal(s): Patient will Maintain Optimal Skin Integrity, Free of Breakdown, Injury or Infection (Avvia Hermosillo RN) Interventions: Complete Screening for Pressure Ulcer Risk and Initiate Protocol per Hospital Policy; Monitor Site of Skin Impairment for Color Changes, Redness, Swelling, Warmth, Pain or Other Signs of Infection; Encourage and Assist with Position Changes; Monitor Patient's Mobility Status; Provide Adequate Nutrition and Fluids; Teach Patient Appropriate Hygienic Care; Teach Patient/Family Skin Care Management (Aviva Hermosillo RN) Outcome: Patient will not have Evidence of Injury Such as Skin Breakdown, Scrapes, Cuts, or Bruising (Aviva Hermosillo RN) Outcome: Patient will Report Any Altered Sensation or Pain at Site of Skin Impairment (Aviva Hermosillo RN) Outcome: Patients Incisions and Wounds will be without Signs or Symptoms of Infection (Aviva Hermosillo RN) Outcome: Patient will Demonstrate Understanding of Plan to Heal Skin and Prevent Reinjury and Verbalize Risk Factors (Aviva Hermosillo RN) State: Not Applicable (Aviva Hermosillo RN)
[2016-10-19 07:51] LABS: HEMATOCRIT 21.5 % (36.0-47.0); HGB HCT DIFFERENCE -0.2; MEAN CORPUSCULAR HEMOGLOBIN 26.9 pg (27.0-33.4); MEAN CORPUSCULAR HGB CONC 32.9 g/dL (32.0-36.0); MEAN CORPUSCULAR VOLUME 82 fl (80-97); RED BLOOD COUNT 2.63 10^6/uL (3.72-5.28); RED CELL DISTRIBUTION WIDTH 14.8 % (11.5-14.0)
[2016-10-19] MEDS: SENNOSIDES/DOCUSATE 8.6-50 MG 1 EACH TABLET PO SCH (09:36)
[2016-10-19] MEDS: PRENATAL VITAMIN W-O CA NO5/FE FUMARATE/FA CAPSULE PO SCH (09:36)
[2016-10-19] MEDS: FAMOTIDINE 20 MG TABLET PO SCH ×2 (09:36→21:24)
[2016-10-19] MEDS: ACETAMINOPHEN WITH CODEINE #3 TABLET PO PRN ×2 (09:36→21:09)
[2016-10-19] MEDS: DOCUSATE SODIUM 100 MG CAPSULE PO SCH ×2 (09:36→17:22)
[2016-10-19] MEDS: FERROUS SULFATE 325 MG TABLET PO SCH ×2 (09:37→17:23)
[2016-10-19 09:41] LABS: HEMOGLOBIN 7.1 g/dL (12.0-15.5)
--- NOTE | 2016-10-19 16:01 | PDOC PROGRESS REPORT ---
Subjective-OB Subjective: Post Delivery Day:1 21 year old s/p vaginal delivery. Breast and bottle feeding, ambulating and voiding without difficulty. Denies any needs at this time. Physical Exam (OB) Vital Signs: Temp Pulse Resp BP Pulse Ox 97.8 F 88 18 116/72 97 10/19/16 08:19 10/19/16 08:19 10/19/16 08:19 10/19/16 08:19 10/19/16 08:19 Intake & Output 10/18/16 10/19/16 10/20/16 06:59 06:59 06:59 Weight 85.55 kg - General General Appearance: Appears well In distress: None - PIH/Pre-Eclampsia DTR's: 1 + Clonus: Negative Headache: Absent Epigastric Pain: No Visual Changes: No - Episiotomy/Laceration Site Condition: Well Approximated - Lochia Lochia Amount: Scant < 10 ml Lochia Color: Rubra/Red - Abdomen Description: Soft Hernia Present: No Fundal Description: Firm, Midline Fundal Height: u/u - u/2 - Respiratory Respiratory Status: No respiratory distress - Genitourinary Female External exam: Normal - Extremities Upper extremity: Normal inspection Lower extremities: Normal inspection - Neurological Orientation: AAOx4 - Psychological Associated symptoms: Normal affect - bonding well with baby, Normal mood - bonding well with baby Objective-Diagnostic Laboratory: 10/19/16 07:31 10/19/16 07:31 WBC 7.0 RBC 2.63 L Hgb 7.1 L D Hct 21.5 L MCV 82 MCH 26.9 L MCHC 32.9 RDW 14.8 H Plt Count 237 Assessment and Plan(PN) - Assessment and Plan (1) Vaginal delivery Is this a current diagnosis for this admission?: YesPlan: continue stay - Time Spent with Patient Time with patient: 15-25 minutes Medications reviewed and adjusted accordingly: Yes - Disposition Anticipated Discharge: Home Within: within 24 hours
[2016-10-20] MEDS: IBUPROFEN 800 MG TABLET PO SCH (05:10)
[2016-10-20 07:08] LABS: HEMATOCRIT 21.9 % (36.0-47.0); HGB HCT DIFFERENCE -0.6; MEAN CORPUSCULAR HEMOGLOBIN 26.8 pg (27.0-33.4); MEAN CORPUSCULAR HGB CONC 32.2 g/dL (32.0-36.0); MEAN CORPUSCULAR VOLUME 83 fl (80-97); RED BLOOD COUNT 2.64 10^6/uL (3.72-5.28); RED CELL DISTRIBUTION WIDTH 14.9 % (11.5-14.0); WHITE BLOOD COUNT 6.6 10^3/uL (4.0-10.5)
[2016-10-20 07:12] LABS: HEMOGLOBIN 7.1 g/dL (12.0-15.5)
[2016-10-20] MEDS: ACETAMINOPHEN WITH CODEINE #3 TABLET PO PRN (07:52)
[2016-10-20 08:10] VITALS: BP 107/66
[2016-10-20] MEDS: PRENATAL VITAMIN W-O CA NO5/FE FUMARATE/FA CAPSULE PO SCH (10:15)
[2016-10-20] MEDS: SENNOSIDES/DOCUSATE 8.6-50 MG 1 EACH TABLET PO SCH (10:15)
[2016-10-20] MEDS: FERROUS SULFATE 325 MG TABLET PO SCH (10:15)
[2016-10-20] MEDS: DOCUSATE SODIUM 100 MG CAPSULE PO SCH (10:15)
[2016-10-20] MEDS: FAMOTIDINE 20 MG TABLET PO SCH (10:48)
--- NOTE | 2016-10-20 11:35 | PDOC DISCHARGE SUMMARY ---
Final Diagnosis Discharge Date: 10/20/16 - Final Diagnosis (1) Vaginal delivery Is this a current diagnosis for this admission?: Yes Discharge Data - Discharge Medication Home Medications: Pnv95/Ferrous Fumarate/FA [ Caplet] 1 each PO DAILY 09/25/16 Reason(s) for Admission: Induction of Labor Admission Note: IUGR, htn Procedures: NST Intrapartum Procedure(s): Spontaneous Vaginal Delivery Intrapartum Procedure Note: precipitous labor Complication(s): Laceration-Perineal Laceration-Degree: 2nd - Diagnosis Test Laboratory: Temp Pulse Resp BP Pulse Ox 98.1 F 79 18 137/74 H 100 10/20/16 07:59 10/20/16 07:59 10/20/16 07:59 10/20/16 07:59 10/20/16 07:59 10/17/16 10/17/16 10/19/16 12:40 13:25 07:31 RBC 3.47 L 2.63 L Hgb 9.4 L 7.1 L D Hct 28.1 L 21.5 L Urine Opiates Screen NEGATIVE 10/20/16 06:35 RBC 2.64 L Hgb 7.1 L Hct 21.9 L Urine Opiates Screen - Discharge information/Instructions Discharge Activity: Activity As Tolerated, Pelvic Rest, No tub bath Discharge Diet: Regular Disposition: HOME, SELF-CARE Follow [facility] with: [facility] in: 4, Weeks
== END 2016-10-20 12:49 | disposition home or self-care (01) | DRG 775 ==
LOC: LR 12:21 → 2S 10-18 08:17
PROVIDERS: ADMIT Obstetrics & Gynecology; ATTEND Obstetrics & Gynecology
PROC: 10E0XZZ Delivery of Products of Conception, External Approach (ICD-10-PCS; principal; 2016-10-18)
PROC: 0KQM0ZZ Repair Perineum Muscle, Open Approach (ICD-10-PCS; 2016-10-18)
DX: O36.5930 Maternal care for other known or suspected poor fetal growth, third trimester, not applicable or unspecified (principal); O13.4 Gestational [pregnancy-induced] hypertension without significant proteinuria, complicating childbirth; O62.3 Precipitate labor; O70.1 Second degree perineal laceration during delivery; Z3A.39 39 weeks gestation of pregnancy; Z37.0 Single live birth
CPT/HCPCS: 36415; 76815; 80307; 81005; 85025; 85027; 86592; 86850; 86900; 86901; 94760; J2300; J2405; J2550; J2590; J3490